=== PATIENT | female | born 1965 | race African-American/Black ===

== ENCOUNTER 2017-10-15 13:00 | Outpatient (RCR) | payer OTHER, SELFPAY | END 2017-10-30 23:59 | LOC: NS 13:00 | PROVIDERS: Family Provider Internal Medicine; PCP Internal Medicine; Visit Provider Nurse Practitioner Family | DX: E66.9 Obesity, unspecified (principal); Z71.3 Dietary counseling and surveillance | CPT/HCPCS: 97802; 97803 ==

== ENCOUNTER 2017-11-12 10:18 | Outpatient (RCR) | payer OTHER, SELFPAY | END 2017-11-27 23:59 | LOC: NS 10:18 | PROVIDERS: Family Provider Internal Medicine; PCP Internal Medicine; Visit Provider Nurse Practitioner Family | DX: E66.9 Obesity, unspecified (principal); Z71.3 Dietary counseling and surveillance | CPT/HCPCS: 97803 ==

== ENCOUNTER 2017-12-03 11:04 | Outpatient (RCR) | payer OTHER, SELFPAY | END 2017-12-28 23:59 | LOC: NS 11:04 | PROVIDERS: Family Provider Internal Medicine; PCP Internal Medicine; Visit Provider Nurse Practitioner Family | DX: E66.9 Obesity, unspecified (principal); Z71.3 Dietary counseling and surveillance | CPT/HCPCS: 97803 ==

== ENCOUNTER → 2018-06-20 07:14 | Outpatient (CLI) | payer OTHER, SELFPAY ==
[2018-06-20 08:05] LABS: ALB/GLOB Ratio 0.8 RATIO (0.9-2.4); AST(SGOT) 15 U/L (15-37); Alanine Aminotransfer ALT/SGPT 20 U/L (13-56); Albumin, Serum 3.6 g/dL (3.2-5.0); Alkaline Phosphatase 90 U/L (45-117); Anion Gap 9 (5-15); BUN 12 mg/dL (7-18); BUN/Creat Ratio 11.4 RATIO (10-20); Calcium,Total 8.7 mg/dL (8.5-10.1); Chloride 107 mmol/L (98-107); Cholesterol 225 mg/dL (200); Creatinine, Serum 1.05 mg/dL (0.55-1.02); EST Glomerular Filtration Rate 58 mL/min (>60); Est Glom Filt Rate - Afr Amer 70 mL/min (>60); Globulin 4.3 g/dL (2.2-4.2); Glucose 94 mg/dL (74-106); High Density Lipoprotein 56 mg/dL; Potassium 4.1 mmol/L (3.5-5.1); Protein, Total 7.9 g/dL (6.4-8.2); Sodium Level 140 mmol/L (136-145); T4 Free Direct 1.33 ng/dL (0.76-1.46); Thyroid Stim Hormone (TSH) 0.69 uIU/mL (0.358-3.74); Triglycerides 84 mg/dL; Very Low Density Lipoprotein 17 mg/dL (5-40)
[2018-06-25 08:50] LABS: Vitamin D 1,25-Dihydroxy 52.9 pg/mL (19.9-79.3)
== END ==
PROVIDERS: Family Provider Internal Medicine; PCP Internal Medicine; Visit Provider Nurse Practitioner
DX: E03.9 Hypothyroidism, unspecified (principal); E55.9 Vitamin D deficiency, unspecified; E78.5 Hyperlipidemia, unspecified
CPT/HCPCS: 36415; 80053; 80061; 82652; 84439; 84443

== ENCOUNTER → 2019-10-27 08:40 | Outpatient (CLI) | payer OTHER, SELFPAY ==
[2019-09-01 15:27] VITALS: BMI 34.8
[2019-10-27 09:51] LABS: T4 Free Direct 1.27 ng/dL (0.76-1.46); Thyroid Stim Hormone (TSH) 4.92 uIU/mL (0.358-3.74)
[2019-10-27 09:52] LABS: Vitamin B12 335 pg/mL (211-911)
== END ==
PROVIDERS: PCP Internal Medicine; Referring Provider Internal Medicine Endocrinology, Diabetes & Metabolism; Visit Provider Internal Medicine Endocrinology, Diabetes & Metabolism
DX: E89.0 Postprocedural hypothyroidism (principal); K90.9 Intestinal malabsorption, unspecified
CPT/HCPCS: 36415; 82607; 84439; 84443

== ENCOUNTER → 2021-03-14 16:24 | Outpatient (CLI) | payer OTHER, SELFPAY ==
[2019-09-01 15:27] VITALS: BMI 34.8
[2021-03-14 17:38] LABS: T4 Free Direct 1.63 ng/dL (0.76-1.46); Thyroid Stim Hormone (TSH) 0.09 uIU/mL (0.358-3.74)
== END ==
PROVIDERS: PCP Internal Medicine; Visit Provider Nurse Practitioner Family
DX: E89.0 Postprocedural hypothyroidism (principal)
CPT/HCPCS: 36415; 84439; 84443

== ENCOUNTER → 2021-05-29 11:50 | Outpatient (CLI) | payer OTHER, SELFPAY ==
[2021-05-29 15:59] LABS: T4 Free Direct 1.24 ng/dL (0.76-1.46); Thyroid Stim Hormone (TSH) 8.55 uIU/mL (0.358-3.74)
== END ==
PROVIDERS: PCP Internal Medicine; Visit Provider Internal Medicine Endocrinology, Diabetes & Metabolism
DX: E89.0 Postprocedural hypothyroidism (principal)
CPT/HCPCS: 36415; 84439; 84443

== ENCOUNTER 2021-11-20 09:36 | Outpatient (CLI) | payer OTHER, SELFPAY ==
[2021-11-20 12:35] LABS: T4 Free Direct 1.61 ng/dL (0.76-1.46); Thyroid Stim Hormone (TSH) 1.89 uIU/mL (0.358-3.74)
== END 2021-11-20 23:59 | disposition home or self-care (01) ==
PROVIDERS: PCP Internal Medicine; Visit Provider Internal Medicine Endocrinology, Diabetes & Metabolism
DX: E89.0 Postprocedural hypothyroidism (principal)
CPT/HCPCS: 36415; 84439; 84443

== ENCOUNTER → 2022-12-24 | Outpatient (CLI) | payer OTHER, SELFPAY ==
[2022-12-24 12:05] LABS: AST(SGOT) 17 U/L (15-37); Alanine Aminotransfer ALT/SGPT 17 U/L (13-56); Alkaline Phosphatase 78 U/L (45-117); Anion Gap 4 (5-15); BUN 11 mg/dL (7-18); BUN/Creat Ratio 10.9 RATIO (10-20); Calcium,Total 9.3 mg/dL (8.5-10.1); Chloride 107 mmol/L (98-107); Creatinine, Serum 1.01 mg/dL (0.55-1.02); EST Glomerular Filtration Rate 60 mL/min (>60); Est Glom Filt Rate - Afr Amer 72 mL/min (>60); Globulin 4.1 g/dL (2.2-4.2); Glucose 96 mg/dL (74-106); Potassium 3.7 mmol/L (3.5-5.1); Protein, Total 8.1 g/dL (6.4-8.2); Sodium Level 138 mmol/L (136-145); T4 Free Direct 1.53 ng/dL (0.76-1.46); Thyroid Stim Hormone (TSH) 0.84 uIU/mL (0.358-3.74)
== END | disposition home or self-care (01) ==
LOC: LAB 10:39
PROVIDERS: PCP Internal Medicine; Referring Provider Internal Medicine Endocrinology, Diabetes & Metabolism; Visit Provider Internal Medicine Endocrinology, Diabetes & Metabolism
DX: E03.9 Hypothyroidism, unspecified (principal); I10 Essential (primary) hypertension
CPT/HCPCS: 36415; 80053; 84439; 84443

== ENCOUNTER → 2023-07-15 | Outpatient (CLI) | payer OTHER, SELFPAY ==
--- NOTE | 2023-07-15 09:43 | BI_ITS ---
MAMMOGRAPHY - BILATERAL SCREENING 3-D TOMOSYNTHESIS REASON FOR EXAM: Female, 57 years old. screening PERTINENT HISTORY: No significant family history. TECHNIQUE: 2-D mammograms and 3-D Tomosynthesis of the breast (s) were performed. CAD was performed. COMPARISON: 03/19/2014 FINDINGS: The breast composition is composed of scattered fibroglandular density. Scattered benign calcifications are seen. No dense spiculated masses or suspicious microcalcifications are identified. No architectural distortion is identified. There is no skin thickening or retraction. There has been no significant change since the prior study. BI/SCRN MAMM (CAD)W/DEBORAH BILAT IMPRESSION: No mammographic signs of malignancy. Routine yearly mammograms recommended. ASSESSMENT CATEGORY: BIRADS Category 1: Negative. A letter regarding these results will be sent to the patient by the facility within 30 days. FOLLOW UP RECOMMENDATION: Yearly follow up mammogram recommended. (A) Approximately 10% of breast cancers are not detected by mammography. A normal mammogram should not delay biopsy of a clinically suspicious abnormality. Electronically Signed: Geraldo Stock MD at 11:23 EDT ,
== END | disposition home or self-care (01) ==
LOC: OPBI 09:43
PROVIDERS: PCP Internal Medicine; Referring Provider Internal Medicine Endocrinology, Diabetes & Metabolism; Visit Provider Internal Medicine Endocrinology, Diabetes & Metabolism
DX: Z12.31 Encounter for screening mammogram for malignant neoplasm of breast (principal)
CPT/HCPCS: 77063; 77067

== ENCOUNTER → 2024-01-22 | Outpatient (CLI) | payer OTHER, SELFPAY ==
[2024-01-22 14:27] LABS: Absolute Lymphocyte Count 1.42 X10^3/uL (0.83-4.51); Absolute Neutrophil Count 1.5 X10^3/uL (2.0-7.7); Basophil# 0.01 X10^3/uL; Basophil% 0.3 % (0-1); Eosinophil# 0.04 X10^3/uL; Eosinophils% 1.2 % (0-5); Hematocrit 38.8 % (37-47); Hemoglobin 12.6 g/dL (12.0-15.0); Lymphocyte # 1.42 X10^3/ul (0.83-4.51); Lymphocyte % 43.6 % (19-41); Mean Corp Hgb Conc 32.5 g/dL (32-36); Mean Corpuscular Hgb 28.9 pg (27.0-32.0); Mean Platelet Vol. 10.9 fl (6.2-12.0); Monocyte% 9.2 % (0-10); NRBC Flagged by Analyzer 0 % (0-5); Neutrophil # 1.49 X10^3/uL (2.7-7.7); Neutrophil % 45.7 % (47-70); Platelet Count 243 K/mm3 (150-450); RBC Distribution Width CV 11.8 % (11.6-14.6); RBC Distribution Width SD 37.7 fl (35.1-43.9); Red Blood Count 4.36 M/mm3 (4.2-5.4); White Blood Count 3.3 K/mm3 (4.4-11.0)
[2024-01-22 15:12] LABS: AST(SGOT) 14 U/L (15-37); Alanine Aminotransfer ALT/SGPT 15 U/L (13-56); Albumin, Serum 4.1 g/dL (3.2-5.0); Alkaline Phosphatase 78 U/L (45-117); Anion Gap 4 (5-15); BUN 14 mg/dL (7-18); BUN/Creat Ratio 15.2 RATIO (10-20); Calcium,Total 9.4 mg/dL (8.5-10.1); Chloride 107 mmol/L (98-107); Cholesterol 211 mg/dL (200); Creatinine, Serum 0.92 mg/dL (0.55-1.02); EST Glomerular Filtration Rate 66 mL/min (>60); Est Glom Filt Rate - Afr Amer 80 mL/min (>60); Glucose 90 mg/dL (74-106); High Density Lipoprotein 53 mg/dL; Potassium 3.9 mmol/L (3.5-5.1); Protein, Total 8.1 g/dL (6.4-8.2); Sodium Level 139 mmol/L (136-145); T4 Free Direct 1.61 ng/dL (0.76-1.46); Triglycerides 78 mg/dL; Very Low Density Lipoprotein 16 mg/dL (5-40)
== END | disposition home or self-care (01) ==
LOC: LAB 13:19
PROVIDERS: PCP Internal Medicine; Referring Provider Internal Medicine Endocrinology, Diabetes & Metabolism; Visit Provider Internal Medicine Endocrinology, Diabetes & Metabolism
DX: E03.9 Hypothyroidism, unspecified (principal)
CPT/HCPCS: 36415; 80053; 80061; 84439; 84443; 85025

== ENCOUNTER → 2025-03-03 | Outpatient (CLI) | payer OTHER, SELFPAY ==
--- OUTSIDE RECORDS SUMMARY | 2025-03-03 11:17 | XMS RPT_ITS | CCD ---
Author Organization [facility] Inform ion Partnership [facility] Care Team Providers Care Lobster Man Name Role Phone Cynthia Carreno MD Unavailable [phone] Hillary Terry Unavailable Unavailable Randy RATE SETTER-C, Rafaela Piper Unavailable Unavailable MIHIR MONTALVO (CHEF DE FROID) Unavailable Unavailabl Cynthia Rodriguez MD Unavailable [phone] Dr. Cynthia Carreno Primary Care Provider [phone] Dr. Cynthia Carreno Referring Provider [phone] Dr. Sundar Briggs Attending Provider Wai Efewongbe Referring Unavailable Sundar Briggs Attending Unavailable Wai Efewbrittany Primary Care Unavailable Sundar Briggs Attending Unavailable Sundar Briggs Referring Unavailable Wai Efteto Primary Care Unavailable Sundar Briggs Attending Unavailable Sundar Briggs Referring Unavailable Wai Efewongclifton Primary Care Unavailable Oleeduardoe Efewongbe Referring Unavailable Sundar Briggs Attending Unavailable Wai Efewongclifton Primary Care Unavailable Allergies Allergy Classification Reported Allergen(s) Allergy Type Date of Onset Reaction(s) Facility (8 sources) codeine; Translations: [CODEINE] drug allergy 7 [facility], Unknown [facility] Work Phone: (4 sources) IRON DEXTROS drug allergy 0 [facility] Work Phone: (1 source) IRON DEXTRAN; Translations: [IRON DEXTRAN] Propensity to adverse reactions to drug (disorder) 7 [facility] Repository (2 sources) Glucose Drug Allergy 3 Unknown [facility] (2 sources) Iron Drug Allergy 3 Unknown [facility] (1 source) Glucose Drug Allergy 4 [facility] Repository (1 source) Iron Drug Allergy 4 [facility] Repository Medications Current Medications Medication Drug Class(es) Dates Sig (Normalized) Sig (Original) levothyroxine sodium 0.137 mg oral tablet (20 sources) l-Thyroxine Start: 01-22-2024 take 137 ug by mouth once daily Levothyroxine Active 137 MCG PO DAILY January 22, 2024 12:00am Start: 03-15-2021 End: 01-22-2024 take 1 tablet by mouth once daily Levothyroxine (Synthroid) 150 mcg tablet Discontinued 150 MCG PO DAILY December 24, 2022 3:34pm June 10, 2023 4:11pm please discontinue any other thyroid prescription. Start: 06-04-2018 End: 03-15-2021 take 1 tablet by mouth once daily Levothyroxine (Synthroid) 200 mcg tablet Discontinued 200 MCG PO DAILY October 29, 2019 1:00am March 15, 2021 8:46am Start: 04-07-2012 take 1 tablet by rl th once daily SYNTHROID 200 MCG TABS One tablet by mouth daily LEVOTHYROXINE SODIUM [id number] Rafaela Padilla RATE SETTER-C Start: 04-07-2012 take 1 tablet by rl th once daily SYNTHROID 175 MCG TABS One tablet by mouth daily LEVOTHYROXINE SODIUM [id number] Cynthia Carreno MD Start: 04-07-2012 take 1 tablet by rl th once daily SYNTHROID 175 MCG TABS One tablet by mouth daily LEVOTHYROXINE SODIUM [id number] Ilir Li MD take 1 tablet by rl th once daily SYNTHROID 175 MCG TABS po daily LEVOTHYROXINE SODIUM [id number] Anne Ca Completed/Discontinued Medications Medication Drug Class(es) Dates Sig (Normalized) Sig (Original) amoxicillin 500 mg oral tablet (8 sources) Penicillin-class Antibacterial Start: 06-19-2012 End: 08-04-2012 take 1 tablet by mouth three times daily AMOXICILLIN 500 MG TABS One tablet by mouth three times daily AMOXICILLIN [id number] Ilir Li MD cephalexin 500 mg oral tablet (16 sources) Cephalosporin Antibacterial Start: 06-18-2012 End: 07-21-2012 take 1 tablet by mouth three times daily CEPHALEXIN 500 MG TABS One tablet by mouth three times daily CEPHALEXIN [id number] Ilir Li MD cyclobenzaprine hydrochloride 5 mg oral tablet (16 sources) Muscle Relaxant Start: 12-25-2013 End: 04-26-2017 take 1-2 tablets by mouth twice daily as needed CYCLOBENZAPRINE HCL 5 MG TABS 1-2 tablets by mouth twice daily as needed, avoid driving or operating machine under the influence of medication. CYCLOBENZAPRINE HCL [id number] Ilir Li MD Start: 04-07-2012 End: 06-18-2012 take 1 tablet by mouth three times daily as needed for pain CYCLOBENZAPRINE HCL 5 MG TABS One tablet by mouth three times daily as needed back pain, avoid driving or operating machine under the influence of medication. CYCLOBENZAPRINE HCL [id number] Ilir Li MD doxycycline hyclate 100 mg oral tablet (12 sources) Tetracycline-class Drug Start: 08-04-2012 End: 12-31-2012 take 1 tablet by mouth twice daily DOXYCYCLINE HYCLATE 100 MG TABS One tablet by mouth twice daily DOXYCYCLINE HYCLATE [id number] Fabiana Wagner MD Start: 07-11-2012 End: 07-21-2012 take 1 tablet by mouth twice daily DOXYCYCLINE HYCLATE 100 MG TABS One tablet by mouth twice daily DOXYCYCLINE HYCLATE [id number] Ilir Li MD mupirocin 0.02 mg/mg topical ointment (8 sources) RNA Synthetase Inhibitor Antibacterial Start: 07-11-2012 End: 04-26-2017 MUPIROCIN 2 % OINT apply to fingertips and bilateral nostril four times a day MUPIROCIN [id number] Hillary Terry SULFAMETHOXAZOLE- TRIMETHOPRIM TABS (8 sources) Dihydrofolate Reductase Inhibitor Antibacterial, Sulfonamide Antimicrobial take 1 tablet by mouth twice daily SULFAMETHOXAZOLE-T RIMETHOPRIM TABS One tablet by mouth twice daily SULFAMETHOXAZOLE-T RIMETHOPRIM TABS [id number] Fabiana Wagner MD End: 04-26-2017 take 1 tablet by mouth twice daily SULFAMETHOXAZOLE-TRIMETHOPRIM TABS One t ablet by mouth twice daily SULFAMETHOXAZOLE-TRIMETHOPRIM TABS [id number] Hillary Terry take 1 tablet by rl twice daily SULFAMETHOXAZOLE-TRIMETHOPRIM TABS One t ablet by mouth twice daily SULFAMETHOXAZOLE-TRIMETHOPRIM TABS [id number] Fabiana Wagner MD End: 04-26-2017 take 1 tablet by mouth twice daily SULFAMETHOXAZOLE-TRIMETHOPRIM TABS One t ablet by mouth twice daily SULFAMETHOXAZOLE-TRIMETHOPRIM TABS [id number] Hillary Terry Problems Active Problems Problem Classification Problem Date Documented Date Episodic/Chronic Complications of surgical procedures or medical care (1 source) Postprocedural hypothyroidism; Translations: [Postprocedural hypothyroidism] Onset: 06-02-2024 Chronic Disorders of lipid metabolism (1 source) Mixed hyperlipidemia; Translations: [Mixed hyperlipidemia] Onset: 06-02-2024 Chronic Essential hypertension (3 sources) Essential hypertension; Translations: [Essential (primary) hypertension] Onset: 06-02-2024 06-08-2018 Chronic Nutritional deficiencies (4 sources) Vitamin D deficiency; Translations: [Vitamin D deficiency, unspecified] Onset: 04-26-2017 04-26-2017 Chronic Other nutritional; endocrine; and metabolic disorders (4 sources) Body mass index (BMI) 32.0-32.9, adult; Translations: [Body mass index (BMI) 32.0-32.9, adult] Onset: 04-26-2017 04-26-2017 Chronic Thyroid disorders (8 sources) Hypothyroidism; Translations: [Hypothyroidism, unspecified] Onset: 11-22-2009 11-22-2009 Chronic Unclassified (3 sources) Hyperlipidemia screening ; Translations: [Encounter for screening for other disorder] Onset: 04-26-2017 04-26-2017 Unclassified (3 sources) General examination of patient ; Translations: [Encounter for other general examination] Onset: 04-07-2012 04-07-2012 Unclassified (3 sources) Screening for malignant neoplasm of breast ; Translations: [Encounter for other screening for malignant neoplasm of breast] Onset: 04-26-2017 04-26-2017 Unclassified (2 sources) Preventive procedure; Translations: [Encounter for general adult medical examination without abnormal findings] Onset: 04-26-2017 04-26-2017 Unclassified (1 source) Procedure carried out on subject; Translations: [Encounter for screening for diseases of the blood and blood-forming organs and certain disorders involving the immune mechanism] Onset: 04-26-2017 04-26-2017 Past or Other Problems Problem Classification Problem Date Documented Date Episodic/Chronic Coagulation and hemorrhagic disorders (4 sources) Vascular hemostatic disease; Translations: [Other nonthrombocytopenic purpura] Onset: 3 12-31-2012 Episodic Medical examination/evaluati on (2 sources) Encounter for general adult medical examination without abnormal findings; Translations: [Encounter for general adult medical examination without abnormal findings] Onset: 7 04-26-2017 Episodic Other circulatory disease (4 sources) Elevated blood-pressure reading without diagnosis of hypertension; Translations: [Elevated blood-pressure reading, without diagnosis of hypertension] Onset: 2 04-07-2012 Episodic Other upper respiratory infections (4 sources) Acute pharyngitis; Translations: [Acute pharyngitis, unspecified] Onset: 2 06-18-2012 Episodic Spondylosis; intervertebral disc disorders; other back problems (4 sources) Backache; Translations: [Dorsalgia, unspecified] Onset: 2 04-07-2012 Episodic Sprains and strains (4 sources) Low back strain; Translations: [Strain of muscle, fascia and tendon of lower back] Onset: 4 12-25-2013 Episodic Unclassified (8 sources) Encounter for screening for diabetes mellitus; Translations: [Encounter for screening for diseases of the blood and blood-forming organs and certain disorders involving the immune mechanism] Onset: 7 04-26-2017 Episodic Results Test Name Value Interpretation Reference Range Facility Endocrinology Visit Reporton 06-02-2024 Endocrinology Visit Report [facility] [address] [place] [address]. [address] [place] [address] OFFICE VISIT Date of Service: 06/02/24 MR#: [id number] Acct: [id number] Name: LUANN RIBEIRO I Rep #: [id number] : 1965 Provider: Alona Briggs Age/Sex: 58/F [place] [facility] [place]: Signed Intake Vital Signs 06/10/23 15:58 06/02/24 15:52 Height 5 ft 5.5 in 5 ft 5.5 in Weight: 211 lb 209 lb BMI 34.5 34.2 BP 142/82 H 128/85 H Blood Pressure Location Lt brachial Lt brachial Position Sitting Sitting Respiration 16 Pulse 72 78 Pulse Source Monitor Monitor Temp 98.3 F Temp Source Temporal Pulse Oximetry (%) 98 99 Oxygen Delivery Method room air room air Intake Visit Reasons: 1 Y FU Chief Complaint: Hypothyroidism Employee'S Representative Required: No Accompanied by: Self Is patient in pain?: No Allergies codeine Allergy (Unknown, Verified 06/02/24 15:54) Unknown dextrose Allergy (Unknown, Verified 06/02/24 15:54) Unknown iron Allergy (Unknown, Verified 06/02/24 15:54) Unknown Medications ???Medication ???Instructions ???Recorded ???Confirmed ???Type levothyroxine 137 mcg tablet 137 mcg PO DAILY #90 tabs 06/02/24 06/02/24 Rx PFSH Medical History Mixed hyperlipidemia Thyroid dysfunction Surgical History H/O: hysterectomy H/O: Family History Unknown Diabetes Hypertension Social History Smoking Status: Never smoker HPI HPI Chief Complaint: Hypothyroidism Details: LUANN RIBEIRO, is a 58 F who presents to the office today for follow up. She has hypothyroidism. She is taking levothyroxine 137 mcg daily. We reduced her to this dose in the spring. Her LDL was 142 and she wanted to work on her diet. ROS Const Constitutional: No anorexia, excessive sweating, malaise, night sweats, weight change or change in appetite Eyes Eyes: No change in vision ENT ENT: No hearing loss, nasal congestion or difficulty swallowing Cardio Cardiology: No chest pain at rest, excessive sweating, shortness of breath, dyspnea on exertion, irregular heart rhythm or palpitations Musc Musculoskeletal: No abnormal gait, joint pain, numbness or tingling Neuro Neurology: No abnormal gait, memory loss, numbness or tingling Psych Psychiatric: No change in appetite, No memory loss and No Thoughts of harming yourself/Others Resp Respiratory: No cough, chest congestion or shortness of breath Gastro GI: No abdominal pain, constipation, diarrhea or difficulty swallowing Genitourinary-Female: No burning urination Skin Skin: No hair loss in leg, itchy eyes, rash or skin ulcer Endo Endocrine: No excessive sweating or weight change Aller/Imm Allergy/Immunologic: No itchy eyes Assessment and Plan Assessment and Plan (1) Hypothyroid: Status: Chronic Qualifiers: Hypothyroidism type: postablative Qualified Code(s): E89.0 - Postprocedural hypothyroidism Plan: Take levothyroxine on an empty stomach with water at least four hours after eating. Then wait 30-60 minutes before consuming any other food or beverage, especially coffee. Separate levothyroxine from vitamins by at least 4 hours. Stop taking any biotin supplement 4 days prior to having labs drawn. Recheck levels on new dose. (2) Mixed hyperlipidemia: Status: Acute Plan: Recheck levels after dietary changes. I have spent [25] minutes today reviewing labs, records and history. Time includes coordinating care, interpretation of tests, discussion with patient's other health care providers via telephone. This also includes time I spent with the patient for exam, treatment plan and education as well as documenting clinical information. Orders: Orders Lipid Profile Today E78.2 - Mixed hyperlipidemia, E89.0 - Postprocedural hypothyroidism, I10 - Essential (primary) hypertension Thyroid Stim Hormone (TSH) Today E78.2 - Mixed hyperlipidemia, E89.0 - Postprocedural hypothyroidism, I10 - Essential (primary) hypertension T4 Free Direct Today E78.2 - Mixed hyperlipidemia, E89.0 - Postprocedural hypothyroidism, I10 - Essential (primary) hypertension Medications: Refilled levothyroxine 137 mcg PO DAILY 90 tabs 1RF Coding Level of Care Code Off vis,est,level 3 Diagnoses Postablative hypothyroidism E89.0 Hypothyroidism type: postablative Mixed hyperlipidemia E78.2 06/02/24 1635 Date Sundar Briggs MD Cosigner Signature: Date (if applicable) CC: Normal [facility] Absolute lymphocyte countOrd ered By: Sundar Briggs on 01-22-2024 Lymphocytes Auto (Unsp spec) [#/Vol] 1.42 10*3/uL 0.83-4.51 [facility] Automated lymphocyte count a s percentage of total leukocytesOrdered By: Sundar Briggs on 01-22-2024 Lymphocytes/100 WBC Auto (Unsp spec) 43.6 % 19-41 [facility] Basophil percentageOrdered B y: Sundar Briggs on 01-22-2024 Basophils/100 WBC (Bld) 0.3 % 0-1 [facility] Bilirubin [Mass/Vol] 0.50 mg/dL 0.20-1.00 [facility] Comment on above: For patients on eltr ombopag therapy, use of Dimension [place] TBIL is not recommended. Chloride [Moles/Vol] 107 mmol/L 98-107 [facility] Cholesterol [Mass/Vol] 211 mg/dL <200 [facility] Comment on above: <200 mg/dL Desirable 200-240 mg/dL Borderline >240 mg/dL High Risk Eosinophils/100 WBC (Bld) 1.2 % 0-5 [facility] Glucose [Mass/Vol] 90 mg/dL 74-106 [facility] Hemoglobin (Bld) [Mass/Vol] 12.6 g/dL 12.0-15.0 [facility] Monocytes/100 WBC (Bld) 9.2 % 0-10 [facility] Neutrophils (Bld) [#/Vol] 1.5 10*3/uL 2.0-7.7 [facility] Neutrophils/100 WBC (Bld) 45.7 % 47-70 [facility] Potassium [Moles/Vol] 3.9 mmol/L 3.5-5.1 [facility] Protein [Mass/Vol] 8.1 g/dL 6.4-8.2 [facility] Sodium [Moles/Vol] 139 mmol/L 136-145 [facility] Triglyceride [Mass/Vol] 78 mg/dL <199 [facility] Comment on above: The drugs N-Acetylcy steine and Metamizole may falsely depress this assay.Serum Triglycerides Reference Interval Normal <150 mg/dL Borderline high 150 - 199 mg/dL High 200 - 499 mg/dL Very High > or = 500 mg/dL WBC (Bld) [#/Vol] 3.3 10*3/uL 4.4-11.0 [facility] CBC W/Diff, Automatedon 12-30 Absolute Lymph 1.42 X10 3/uL Normal 0.83-4.51 [facility] Comment on above: Performed By: #### L 500.4050, L501.9520, L506.0400, L500.4100, L100.0100 #### [facility] [address] [place], [address] Absolute Neut 1.5 X10 3/uL Low 2.0-7.7 [facility] Comment on above: Performed By: #### L 500.4050, L501.9520, L506.0400, L500.4100, L100.0100 #### [facility] [address] [place], [address] Basophils/100 WBC (Bld) 0.3 % Normal 0-1 [facility] Comment on above: Performed By: #### L 500.4050, L501.9520, L506.0400, L500.4100, L100.0100 #### [facility] [address] [place], [address] Eosinophils/100 WBC (Bld) 1.2 % Normal 0-5 [facility] Comment on above: Performed By: #### L 500.4050, L501.9520, L506.0400, L500.4100, L100.0100 #### [facility] [address] [place], [address] Erythrocyte distribution width (RBC) [Ratio] 11.8 % Normal 11.6-14.6 [facility] Comment on above: Performed By: #### L 500.4050, L501.9520, L506.0400, L500.4100, L100.0100 #### [facility] [address] [place], [address] Hematocrit (Bld) [Volume fraction] 38.8 % Normal 37-47 [facility] Comment on above: Performed By: #### L 500.4050, L501.9520, L506.0400, L500.4100, L100.0100 #### [facility] [address] [place], [address] Hemoglobin (Bld) [Mass/Vol] 12.6 g/dL Normal 12.0-15.0 [facility] Comment on above: Performed By: #### L 500.4050, L501.9520, L506.0400, L500.4100, L100.0100 #### [facility] [address] [place], [address] IG% 0.000 Normal 0.0-0.9 [facility] Comment on above: Result Comment: IG% - Immature Granulocytes (promyelocytes, myelocytes and metamyelocytes) > 1% indicates that a LEFT SHIFT is Present. Performed By: #### L 500.4050, L501.9520, L506.0400, L500.4100, L100.0100 #### [facility] [address] [place], [address] Lymphocytes/100 WBC (Bld) 43.6 % High 19-41 [facility] Comment on above: Performed By: #### L 500.4050, L501.9520, L506.0400, L500.4100, L100.0100 #### [facility] [address] [place], [address] MCH (RBC) [Entitic mass] 28.9 pg Normal 27.0-32.0 [facility] Comment on above: Performed By: #### L 500.4050, L501.9520, L506.0400, L500.4100, L100.0100 #### [facility] [address] [place], [address] MCHC (RBC) [Mass/Vol] 32.5 g/dL Normal 32-36 [facility] Comment on above: Performed By: #### L 500.4050, L501.9520, L506.0400, L500.4100, L100.0100 #### [facility] [address] [place], [address] MCV (RBC) [Entitic vol] 89.0 fL Normal 81-99 [facility] Comment on above: Performed By: #### L 500.4050, L501.9520, L506.0400, L500.4100, L100.0100 #### [facility] [address] [place], [address] Monocytes/100 WBC (Bld) 9.2 % Normal 0-10 [facility] Comment on above: Performed By: #### L 500.4050, L501.9520, L506.0400, L500.4100, L100.0100 #### [facility] [address] [place], [address] Neutrophils/100 WBC (Bld) 45.7 % Low 47-70 [facility] Comment on above: Performed By: #### L 500.4050, L501.9520, L506.0400, L500.4100, L100.0100 #### [facility] [address] [place], [address] Nucleated RBC (Bld) [#/Vol] 0 10*3/uL Normal 0-5 [facility] Comment on above: Performed By: #### L 500.4050, L501.9520, L506.0400, L500.4100, L100.0100 #### [facility] [address] [place], [address] Platelet mean volume (Bld) [Entitic vol] 10.9 fL Normal 6.2-12.0 [facility] Comment on above: Performed By: #### L 500.4050, L501.9520, L506.0400, L500.4100, L100.0100 #### [facility] [address] [place], [address] Platelets (Bld) [#/Vol] 243 10*3/uL Normal 150-450 [facility] Comment on above: Performed By: #### L 500.4050, L501.9520, L506.0400, L500.4100, L100.0100 #### [facility] [address] [place], [address] RBC (Bld) [#/Vol] 4.36 10*6/uL Normal 4.2-5.4 [facility] Comment on above: Performed By: #### L 500.4050, L501.9520, L506.0400, L500.4100, L100.0100 #### [facility] [address] [place], [address] RDW SD 37.7 fl Normal 35.1-43.9 [facility] Comment on above: Performed By: #### L 500.4050, L501.9520, L506.0400, L500.4100, L100.0100 #### [facility] [address] [place], [address] WBC (Bld) [#/Vol] 3.3 10*3/uL Low 4.4-11.0 [facility] Comment on above: Performed By: #### L 500.4050, L501.9520, L506.0400, L500.4100, L100.0100 #### [facility] [address] [place], [address] Comprehensive Metabolic Prof ilon 01-22-2024 Albumin [Mass/Vol] 4.1 g/dL Normal 3.2-5.0 [facility] Comment on above: Performed By: #### L 500.4050, L501.9520, L506.0400, L500.4100, L100.0100 #### [facility] [address] [place], [address] Albumin/Globulin [Mass ratio] 1.0 {ratio} Normal 0.9-2.4 [facility] Comment on above: Performed By: #### L 500.4050, L501.9520, L506.0400, L500.4100, L100.0100 #### [facility] [address] [place], [address] ALK P 78 U/L Normal 45-117 [facility] Comment on above: Performed By: #### L 500.4050, L501.9520, L506.0400, L500.4100, L100.0100 #### [facility] [address] [place], [address] ALT [Catalytic activity/Vol] 15 U/L Normal 13-56 [facility] Comment on above: Performed By: #### L 500.4050, L501.9520, L506.0400, L500.4100, L100.0100 #### [facility] [address] [place], [address] AST [Catalytic activity/Vol] 14 U/L Low 15-37 [facility] Comment on above: Performed By: #### L 500.4050, L501.9520, L506.0400, L500.4100, L100.0100 #### [facility] [address] [place], [address] Bilirubin [Mass/Vol] 0.50 mg/dL Normal 0.20-1.00 [facility] Comment on above: Result Comment: For patients on eltrombopag therapy, use of Dimension [place] TBIL is not recommended. Performed By: #### L 500.4050, L501.9520, L506.0400, L500.4100, L100.0100 #### [facility] [address] [place], [address] BUN/CRE 15.2 RATIO Normal 10-20 [facility] Comment on above: Performed By: #### L 500.4050, L501.9520, L506.0400, L500.4100, L100.0100 #### [facility] [address] [place], [address] CA,Total 9.4 mg/dL Normal 8.5-10.1 [facility] Comment on above: Performed By: #### L 500.4050, L501.9520, L506.0400, L500.4100, L100.0100 #### [facility] [address] [place], [address] Chloride [Moles/Vol] 107 mmol/L Normal 98-107 [facility] Comment on above: Performed By: #### L 500.4050, L501.9520, L506.0400, L500.4100, L100.0100 #### [facility] [address] [place], [address] CO2 [Moles/Vol] 28.0 mmol/L Normal 21.0-32.0 [facility] Comment on above: Performed By: #### L 500.4050, L501.9520, L506.0400, L500.4100, L100.0100 #### [facility] [address] [place], [address] Creatinine [Mass/Vol] 0.92 mg/dL Normal 0.55-1.02 [facility] Comment on above: Result Comment: The validity of the calculated GFR GFRAA in patients over 70 years has not been determined. Clinical correlation is essential. Performed By: #### L 500.4050, L501.9520, L506.0400, L500.4100, L100.0100 #### [facility] [address] [place], [address] EST GFR - AA 80 mL/min Normal >60 [facility] Comment on above: Result Comment: Afri can Finnish GFR Calc Performed By: #### L 500.4050, L501.9520, L506.0400, L500.4100, L100.0100 #### [facility] [address] [place], [address] GAP 4 Low 5-15 [facility] Comment on above: Performed By: #### L 500.4050, L501.9520, L506.0400, L500.4100, L100.0100 #### [facility] [address] [place], [address] GFR/1.73 sq M.predicted among non-blacks MDRD (S/P/Bld) [Vol rate/Area] 66 mL/min/{1.73_m2} Normal >60 [facility] Comment on above: Result Comment: Non- GFR Calc Performed By: #### L 500.4050, L501.9520, L506.0400, L500.4100, L100.0100 #### [facility] [address] [place], [address] Globulin (S) [Mass/Vol] 4.0 g/dL Normal 2.2-4.2 [facility] Comment on above: Performed By: #### L 500.4050, L501.9520, L506.0400, L500.4100, L100.0100 #### [facility] [address] [place], [address] Glucose [Mass/Vol] 90 mg/dL Normal 74-106 [facility] Comment on above: Performed By: #### L 500.4050, L501.9520, L506.0400, L500.4100, L100.0100 #### [facility] [address] [place], [address] Potassium [Moles/Vol] 3.9 mmol/L Normal 3.5-5.1 [facility] Comment on above: Performed By: #### L 500.4050, L501.9520, L506.0400, L500.4100, L100.0100 #### [facility] [address] [place], [address] Sodium [Moles/Vol] 139 mmol/L Normal 136-145 [facility] Comment on above: Performed By: #### L 500.4050, L501.9520, L506.0400, L500.4100, L100.0100 #### [facility] [address] [place], [address] T PROT 8.1 g/dL Normal 6.4-8.2 [facility] Comment on above: Performed By: #### L 500.4050, L501.9520, L506.0400, L500.4100, L100.0100 #### [facility] [address] [place], [address] Urea nitrogen [Mass/Vol] 14 mg/dL Normal 7-18 [facility] Comment on above: Performed By: #### L 500.4050, L501.9520, L506.0400, L500.4100, L100.0100 #### [facility] [place], [address] Determination of erythrocyte mean corpuscular volume (MCV)Ordered By: Sundar Briggs on 01-22-2024 MCV (RBC) [Entitic vol] 89.0 fL 81-99 [facility] Erythrocyte distribution wid th ratioOrdered By: Sundar Briggs on 01-22-2024 Erythrocyte distribution width (RBC) [Ratio] 11.8 % 11.6-14.6 [facility] Erythrocyte distribution wid th standard deviationOrdered By: Sundar Briggs on 01-22-2024 Erythrocyte distribution width (RBC) [Entitic vol] 37.7 fL 35.1-43.9 [facility] Hematocrit Auto (Bld) [Volum e fraction]Ordered By: Sundar Briggs on 01-22-2024 Hematocrit (Bld) [Volume fraction] 38.8 % 37-47 [facility] Immature granulocytes/100 WB C Auto (Bld)Ordered By: Sundar Briggs on 01-22-2024 Immature granulocytes/100 WBC (Bld) 0.000 % 0.0-0.9 [facility] Comment on above: IG% - Immature Granu locytes (promyelocytes, myelocytes and metamyelocytes) > 1% indicates that a LEFT SHIFT is Present. Laboratory - Chemistry and C hemistry - challengeOrdered By: Sundar Briggs on 01-22-2024 Albumin/Globulin [Mass ratio] 1.0 {ratio} 0.9-2.4 [facility] ALP [Catalytic activity/Vol] 78 U/L 45-117 [facility] ALT [Catalytic activity/Vol] 15 U/L 13-56 [facility] Cholesterol in HDL [Mass/Vol] 53 mg/dL >40 [facility] Comment on above: The drugs N-Acetylcy steine and Metamizole may falsely depress this assay. Reference Range HDL <40 mg/dL Low HDL Cholesterol HDL >or= 60 mg/dL High HDL Cholesterol Cholesterol in LDL [Mass/Vol] 142 mg/dL 0-130 [facility] CO2 [Moles/Vol] 28.0 mmol/L 21.0-32.0 [facility] Globulin (S) [Mass/Vol] 4.0 g/dL 2.2-4.2 [facility] Urea nitrogen/Creatinine [Mass ratio] 15.2 mg/mg 10-20 [facility] - Hematology and Cell countsOrdered By: Sundar Briggs on 01-22-2024 MCH (RBC) [Entitic mass] 28.9 pg 27.0-32.0 [facility] MCHC (RBC) [Mass/Vol] 32.5 g/dL 32-36 [facility] Nucleated RBC/100 WBC (Bld) [Ratio] 0 % 0-5 [facility] Platelet mean volume (Bld) [Entitic vol] 10.9 fL 6.2-12.0 [facility] Platelets (Bld) [#/Vol] 243 10*3/uL 150-450 [facility] Lipid Profileon 01-22-2024 Cholesterol [Mass/Vol] 211 mg/dL High 200 [facility] Comment on above: Result Comment: <200 mg/dL Desirable 200-240 mg/dL Borderline >240 mg/dL High Risk Performed By: #### L 500.4050, L501.9520, L506.0400, L500.4100, L100.0100 #### [facility] [address] [place], [address] Cholesterol in HDL [Mass/Vol] 53 mg/dL Normal [facility] Comment on above: Result Comment: The drugs N-Acetylcysteine and Metamizole may falsely depress this assay. Reference Range HDL <40 mg/dL Low HDL Cholesterol HDL >or= 60 mg/dL High HDL Cholesterol Performed By: #### L 500.4050, L501.9520, L506.0400, L500.4100, L100.0100 #### [facility] [address] [place], [address] Cholesterol in LDL [Mass/Vol] 142 mg/dL High 0-130 [facility] Comment on above: Performed By: #### L 500.4050, L501.9520, L506.0400, L500.4100, L100.0100 #### [facility] [address] [place], [address] Cholesterol in VLDL [Mass/Vol] 16 mg/dL Normal 5-40 [facility] Comment on above: Performed By: #### L 500.4050, L501.9520, L506.0400, L500.4100, L100.0100 #### [facility] [address] [place], [address] Triglyceride [Mass/Vol] 78 mg/dL Normal [facility] Comment on above: Result Comment: The drugs N-Acetylcysteine and Metamizole may falsely depress this assay. Serum Triglycerides Reference Interval Normal <150 mg/dL Borderline high 150 - 199 mg/dL High 200 - 499 mg/dL Very High > or = 500 mg/dL Performed By: #### L 500.4050, L501.9520, L506.0400, L500.4100, L100.0100 #### [facility] [address] [place], [place], [id number] No Panel InformationOrdered By: Sundar Briggs on 01-22-2024 Estimated GFR (MDRD) Amer 80 mL/min >60 [facility] Comment on above: GFR Calc Estimated GFR (MDRD) Non-Af Amer 66 mL/min >60 [facility] Comment on above: Non- GFR Calc VLDL Cholesterol 16 mg/dL 5-40 [facility] RBC Auto (Bld) [#/Vol]Ordere d By: Sundar Briggs on 01-22-2024 RBC (Bld) [#/Vol] 4.36 10*6/uL 4.2-5.4 [facility] Serum or plasma calcium yoan urement (mass/volume)Ordered By: Sundar Briggs on 01-22-2024 Calcium [Mass/Vol] 9.4 mg/dL 8.5-10.1 [facility] Serum or plasma creatinine m easurement (mass/volume)Ordered By: Sundar Briggs on 01-22-2024 Creatinine [Mass/Vol] 0.92 mg/dL 0.55-1.02 [facility] Comment on above: The validity of the calculated GFR & GFRAA in patients over 70 years has not been determined. Clinical correlation is essential. Serum or plasma thyroid stim ulating hormone (TSH) measurement (units/volume)Ordered By: Sundar Briggs on 01-22-2024 TSH Qn 0.10 uIU/mL 0.358-3.74 [facility] Serum or plasma urea nitroge n measurement (mass/volume)Ordered By: Sundar Briggs on 01-22-2024 Urea nitrogen [Mass/Vol] 14 mg/dL 7-18 [facility] T4 Free Directon 01-22-2024 T4 FREE DIRECT 1.61 ng/dL High 0.76-1.46 [facility] Comment on above: Performed By: #### L 500.4050, L501.9520, L506.0400, L500.4100, L100.0100 #### [facility] [address] [place], [address] Thin prep Papanicolaou smear with manual screeningOrdered By: Sundar Briggs on 01-22-2024 Thin prep Papanicolaou smear with manual screening 4.1 g/dL 3.2-5.0 [facility] Thin prep Papanicolaou smear with manual screening 14 U/L 15-37 [facility] Thin prep Papanicolaou smear with manual screening 4 5-15 [facility] Thin prep Papanicolaou smear with manual screening 1.61 ng/dL 0.76-1.46 [facility] Thyroid Stim Hormone (TSH)on 01-22-2024 TSH 0.10 uIU/mL Low 0.358-3.74 [facility] Comment on above: Performed By: #### L 500.4050, L501.9520, L506.0400, L500.4100, L100.0100 #### [facility] [address] [place], [address] SCRN MAMM (CAD)W/DEBORAH BILATo n 07-15-2023 SCRN MAMM (CAD)W/DEBORAH BILAT [facility] Services [address] [place] [address] SCRN MAMM (CAD)W/DEBORAH BILAT MR#: [id number] Acct: [id number] Name: LUANN RIBEIRO I Rep #: [id number] : 1965 F 57 From: Geraldo Stock MD PCP: Dr. Cynthia Carreno MD Status: REG CLI Study: SCRN MAMM (CAD)W/DEBORAH BILAT Date of Exam: 06/30 03/22 Exam# [id number] Ordering Dr: Sundar Briggs MD [id number] MAMMOGRAPHY - BILATERAL SCREENING 3-D TOMOSYNTHESIS REASON FOR EXAM: Female, 57 years old. screening PERTINENT HISTORY: No significant family history. TECHNIQUE: 2-D mammograms and 3-D Tomosynthesis of the breast (s) were performed. CAD was performed. COMPARISON: 03/19/2014 FINDINGS: The breast composition is composed of scattered fibroglandular density. Scattered benign calcifications are seen. No dense spiculated masses or suspicious microcalcifications are identified. No architectural distortion is identified. There is no skin thickening or retraction. There has been no significant change since the prior study. BI/SCRN MAMM (CAD)W/DEBORAH BILAT IMPRESSION: No mammographic signs of malignancy. Routine yearly mammograms recommended. ASSESSMENT CATEGORY: BIRADS Category 1: Negative. A letter regarding these results will be sent to the patient by the facility within 30 days. FOLLOW UP RECOMMENDATION: Yearly follow up mammogram recommended. (A) Approximately 10% of breast cancers are not detected by mammography. A normal mammogram should not delay biopsy of a clinically suspicious abnormality. Electronically Signed: Geraldo Stock MD at 11:23 EDT , CC: Dr. Cynthia Carreno MD; Dr. Sundar Briggs MD Dormitory Counselor: Signed Normal [facility] Endocrinology Visit Reporton 06-10-2023 Endocrinology Visit Report [facility] [address] [place] [address] [address] [place] [address] OFFICE VISIT Date of Service: 06/10/23 MR#: [id number] Acct: [id number] Name: LUANN RIBEIRO I Rep #: [id number] : 1965 Provider: Alona Briggs Age/Sex: 57/F [place] [facility] [place]: Signed Intake Vital Signs 06/18/22 16:01 06/10/23 15:58 Height 5 ft 5.5 in 5 ft 5.5 in Weight: 211 lb 8 oz 211 lb BMI 34.6 34.5 BP 141/83 H 142/82 H Blood Pressure Location Lt brachial Lt brachial Position Sitting Sitting Respiration 18 16 Pulse 82 72 Pulse Source Monitor Monitor Temp 97.3 F L 98.3 F Temp Source Temporal Temporal Pulse Oximetry (%) 94 98 Oxygen Delivery Method room air room air Intake Visit Reasons: 1 Y FU Chief Complaint: Hypothyroidism Employee'S Representative Required: No Accompanied by: Self Is patient in pain?: No Allergies codeine Allergy (Unknown, Verified 06/10/23 16:04) Unknown dextrose Allergy (Unknown, Verified 06/10/23 16:04) Unknown iron Allergy (Unknown, Verified 06/10/23 16:04) Unknown Nurse's Note: Room 3 [facility] Medical History Thyroid dysfunction Surgical History H/O: H/O: hysterectomy Family History Unknown Diabetes Hypertension Social History Smoking Status: Never smoker HPI HPI Chief Complaint: Hypothyroidism Details: LUANN RIBEIRO, is a 57 F who presents to the office today for follow up. She is feeling well, no complaints. She is taking levothyroxine. Labs are due next November. She doesn't have PCP. She needs mammogram. She doesn't want DEXA at this time. Exam Const General: cooperative, healthy appearing, comfortable, no acute distress, well developed and not cushingoid Nutritional Appearance: well nourished Orientation: alert, awake and oriented x3 HENMT Head: normal to inspection Ears: hearing grossly normal bilaterally Nose: external nose normal Mouth: oral mucosae normal Eyes General: appearance normal, both eyes and all related structures Alignment and Position: alignment normal Periorbital: periorbital findings normal Eyelids: eyelids normal Conjunctivae: conjunctivae normal Neck Neck: normal visual inspection Neck mass: No Thyroid: thyroid normal Carotids: no bruits Lymphatic: no lymphadenopathy noted Chest Chest palpation inspection: normal inspection of the chest Resp Effort Inspection: normal respiratory effort, able to speak in complete sentences, symmetric chest movement, no audible wheezes and no cough Auscultation: Bilateral: Clear to Auscultation Cardio Rate: regular rate Rhythm: regular rhythm GI Inspection: normal to inspection Skin General: no rashes or lesions noted Neuro General: patient alert, patient awake and patient oriented x3 Cranial Nerves: CN's II-XI intact bilaterally Cognition: normal cognition Speech: speech normal Gait: normal gait Motor: muscle tone normal throughout Extrem General: no edema Psych Appearance: grossly normal Mental Status: mental status grossly normal Mood: congruent mood Affect: normal affect Speech and Movement: speech and movement normal Attitude: cooperative Thought Process: normal Thought Content: normal Judgment: judgment good Coding Level of Care Code Off vis,est,level 4 Diagnoses Postablative hypothyroidism E89.0 Hypothyroidism type: postablative Assessment and Plan Assessment and Plan (1) Hypothyroid: Status: Chronic Qualifiers: Hypothyroidism type: postablative Qualified Code(s): E89.0 - Postprocedural hypothyroidism Plan: Take levothyroxine on an empty stomach with water at least four hours after eating. Then wait 30-60 minutes before consuming any other food or beverage, especially coffee. Separate levothyroxine from vitamins by at least 4 hours. Stop taking any biotin supplement 4 days prior to having labs drawn. Check labs if symptoms or before November,. Mammogram ordered. I have spent [30] minutes today reviewing labs, records and history. Time includes coordinating care, interpretation of tests, discussion with patient's other health care providers via telephone. This also includes time I spent with the patient for exam, treatment plan and education as well as documenting clinical information. Orders: Orders T4 Free Direct Today E03.9 - Hypothyroidism, unspecified Thyroid Stim Hormone (TSH) Today E03.9 - Hypothyroidism, unspecified SCRN MAMM (CAD)W/DEBORAH BILAT Today Z12.31 - Encounter for screening mammogram for malignant neoplasm of breast Comprehensive Metabolic Profil Today E03 (more content not included)... Normal [facility] CNOVon 02-08-2018 CNOV Office Visit ([facility]) -LUANN RIBEIRO I ([id number]) 1965 FDate Time Provider Department02/08/18 1:30 PM RAFAELA HARRISON (CHITO) [facility] During your visit today, we recorded the following information about you: Temperature Pulse Respiration Blood pressure 97.8 degrees 80/minute 16/minute 126/84 Weight 93.4 kgRafaela Harrison (Chito) 02/08/2018 2:02 PM SignedSubjectiveHPIBafaustina Perez Kim is a 52 year old female who presents with a small lesionon the right inner thigh that she noticed on 02/07/18. It does not itch. She isunsure how she got it or when. There are no other lesions noted.PAST MEDICAL HISTORYDiagnosis Date- Anemia, unspecified- Excessive or frequent menstruation Heavy periods- Hypothyroidism- Leiomyoma of uterus, unspecifiedPAST SURGICAL HISTORYProcedure Laterality Date- PAST SURGICAL HISTORY OF c section- PAST SURGICAL HISTORY OF bto- VAGINAL HYSTERECTOMY 2006 ovaries remainALLERGIES Codeine; Iron DextranMEDICATIONSSYNTHROID 175 mcg tablet Take 1 tablet by mouth once daily. Take on emptystomach. For Thyroid.Cholecalciferol, Vitamin D3, 2,000 unit cap Take 1 tablet by mouth once daily.To start after 12 weeks of Vit D 50,000 IU PO weekly.methylPREDNISolone (MEDROL, RHONDA,) 4 mg Dose-Pack Take as directedFAMILY HISTORYProblem Relation Age of Onset- Hypertension Father- Hypertension Mother- Diabetes Sister- Hypertension Brother- Thyroid SisterSocial HistorySubstance Use Topics- Smoking status: Never Smoker- Smokeless tobacco: Never Used- Alcohol use NoReview of SystemsSkin: Positive for rash. Negative for itching.All other systems reviewed and are negative.ObjectivePhysical ExamConstitutional: She is oriented to person, place, and time and well-developed,well-nourished , and in no distress.Neurological: She is alert and oriented to person, place, and time.Skin: Skin is warm and dry.1 cm oval lesion with a dark border and slight scaly centerPsychiatric: Affect normal.ASSESSMENT/PLAN:1. Skin eruption - ICD9: 782.1, ICD10: S56Etkffev to try OTC Cortisone cream 2-3 x/day. Return if she notices spreading.CHITO Melara-CReferring Provider: SELF [200]Allergies As of Date: 02/08/2018 Noted Allergy ReactionCODEINE 02/03/2007 12 - Shortness of BreathIRON DEXTRAN 03/07/2007 4 - Hives 9 - Itching Comments: This occurred with test dose.Date Reviewed: 02/08/2018Reviewed by: Sugey Wyman LPN - Fully AssessedReason for Visit: Rash [1087] Cmt: On upper inner right thighPrimary Visit Diagnosis:Skin eruption [R21]Prescriptions as of 02/08/2018 Sig: SYNTHROID 175 MCG TABLET Take 1 tablet by mouth once d* CHOLECALCIFEROL (VITAMIN D3) * Take 1 tablet by mouth once d* METHYLPREDNISOLONE 4 MG TABLE* Take as directedProblem List As Of Date 02/08/2018 Noted Resolved ANEMIA NOS [D64.9] INVALID FOR* COAGULAT DEFECT NEC/NOS [D68.9] INVALID FOR* IRON DEFIC ANEMIA NOS [D50.9] INVALID FOR* UTERINE LEIOMYOMA NOS [D25.9] INVALID FOR* EXCESSIVE MENSTRUATION [N92.0] INVALID FOR* Hypothyroidism [E03.9] INVALID FOR* More... Status:Closed by RAFAELA HARRISON PA-C on 02/08/18 Normal [facility] PROGRESSon 02-08-2018 PROGRESS HNO ID: [id number] thor: Rafaela Harrison (Chito)Service: (none)Author Type: Physician AssistantType: Progress NotesFiled: 02/08/2018 2:02 PMNote Text:SubjectiveHPIBafaustina Ribeiro is a 52 year old female who presents with a smalllesion on the right inner thigh that she noticed on 02/07/18. It does notitch. She is unsure how she got it or when. There are no other lesionsnoted.PAST MEDICAL HISTORYDiagnosis Date- Anemia, unspecified- Excessive or frequent menstruation Heavy periods- Hypothyroidism- Leiomyoma of uterus, unspecifiedPAST SURGICAL HISTORYProcedure Laterality Date- PAST SURGICAL HISTORY OF c section- PAST SURGICAL HISTORY OF bto- VAGINAL HYSTERECTOMY 2006 ovaries remainALLERGIES Codeine; Iron DextranMEDICATIONSSYNTHROID 175 mcg tablet Take 1 tablet by mouth once daily. Take on emptystomach. For Thyroid.Cholecalciferol, Vitamin D3, 2,000 unit cap Take 1 tablet by mouth oncedaily. To start after 12 weeks of Vit D 50,000 IU PO weekly.methylPREDNISolone (MEDROL, RHONDA,) 4 mg Dose-Pack Take as directedFAMILY HISTORYProblem Relation Age of Onset- Hypertension Father- Hypertension Mother- Diabetes Sister- Hypertension Brother- Thyroid SisterSocial HistorySubstance Use Topics- Smoking status: Never Smoker- Smokeless tobacco: Never Used- Alcohol use NoReview of SystemsSkin: Positive for rash. Negative for itching.All other systems reviewed and are negative.ObjectivePhysical ExamConstitutional: She is oriented to person, place, and time andwell-developed, well-nourished, and in no distress.Neurological: She is alert and oriented to person, place, and time.Skin: Skin is warm and dry.1 cm oval lesion with a dark border and slight scaly centerPsychiatric: Affect normal.ASSESSMENT/PLAN:1. Skin eruption - ICD9: 782.1, ICD10: F79Wtszsuw to try OTC Cortisone cream 2-3 x/day. Return if she noticesspreading.Rafaela Harrison PA-C Normal [facility] CNOVon 06-11-2017 CNOV Office Visit ([facility]) -LUANN RIBEIRO I ([id number]) 1965 FDate Time Provider Department06/11/17 4:45 PM EMILEE SHERMAN (DEVELOPMENT ANALYST) [facility] During your visit today, we recorded the following information about you: Temperature Pulse Respiration Blood pressure 98.2 degrees 78/minute 16/minute 138/90 Weight 91.2 kgEmilee Sherman CNP 06/27/2017 8:34 AM AddendumPatient is a 51 year old female presenting with sore throat. The history isprovided by the patient. No language path was used.Sore ThroatPertinent negatives include no congestion, coughing, ear pain, headaches orshortness of breath.HPI Luann Ribeiro is a 51 year old female who presents today for CC ofsore throat This started 48 hours ago. She is also having fatigue. Symptomsare worsened by swallowing. She has tried tylenol with slight relief. Riskfactors grandchildren PMH h/o staph infection in throat 5 years ago in throat,not strepBP 138/90 Pulse 78 Temp 36.8 ?C (98.2 ?F) (Tympanic) Resp 16 Wt 91.2 kg(201 lb) LMP 05/12/2007 BMI 33.19 kg/[id number] Reactions- Codeine Shortness of Breath- Iron Dextran Hives, Itching This occurred with test dose.ACTIVE PROBLEM LISTAnemia, UnspecifiedOther and Unspecified Coagulation DefectsIron Deficiency Anemia, UnspecifiedLeiomyoma of Uterus, UnspecifiedExcessive Or Frequent MenstruationHypothyroidismFam ge HistoryProblem Relation Age of Onset- Hypertension Father- Hypertension Mother- Diabetes Sister- Hypertension Brother- Thyroid SisterSocial History Marital status: Spouse name: Years of education: Number of children: 4Occupational HistoryOccupation Employer Comment [employer]*Social History Main Topics Smoking status: Never Smoker Alcohol use: No Drug use: No Sexual activity: NoReview of SystemsConstitutional: Positive for malaise/fatigue. Negative for chills and fever.HENT: Positive for sore throat. Negative for congestion and ear pain.Respiratory: Negative for cough, sputum production, shortness of breath andwheezing.Cardiovascular: Negative for chest pain.Musculoskeletal: Negative for myalgias.Skin: Negative for rash.Neurological: Negative for headaches.Physical ExamConstitutional: She is oriented to person, place, and time and well-developed,well-nourished , and in no distress.HENT:Head: Normocephalic and atraumatic.Right Ear: Tympanic membrane, external ear and ear canal normal. Tympanicmembrane is not injected, not erythematous, not retracted and not bulging. Nomiddle ear effusion.Left Ear: Tympanic membrane, external ear and ear canal normal. Tympanicmembrane is not injected, not erythematous, not retracted and not bulging. Nomiddle ear effusion.Nose: Nose normal. Right sinus exhibits no maxillary sinus tenderness and nofrontal sinus tenderness. Left sinus exhibits no maxillary sinus tenderness andno frontal sinus tenderness.Mouth/Throat: Uvula is midline and mucous membranes are normal. Oropharyngealexudate (white), posterior oropharyngeal edema and posterior oropharyngealerythema present. No tonsillar abscesses.Eyes: Conjunctivae and EOM are normal. Pupils are equal, round, and reactive tolight.Neck: Normal range of motion. Neck supple.Pulmonary/Chest: Effort normal.Lymphadenopathy: Head (right side): No submental, no submandibular, no tonsillar, nopreauricular and no posterior auricular adenopathy present. Head (left side): No submental, no submandibular, no tonsillar, nopreauricular and no posterior auricular adenopathy present. She has no cervical adenopathy. Right: No supraclavicular adenopathy present. Left: No supraclavicular adenopathy present.Neurological: She is alert and oriented to person, place, and time.Skin: Skin is warm and dry.Psychiatric: Affect normal.Nursing note and vitals reviewed.ASSESSMENT/PLAN:1. Sore throat - ICD9: 462, ICD10: J02.9- suspect viral- Rapid Strep negative in the office today- overnight throat culture pending- Discussed supportive care treatment with fluids, rest and analgesia.- The patient may also use warm salt water gargles, throat lozenges and/or OTCthroat spray as needed.- Contagious dz precautions discussed- including considered contagious untilon antibiotics for 24 hours- The patient should follow up in one week if symptoms persist or worsen- Call back if drooling, increased temperature, symptoms of dehydration and/orstill sick in one week- GROUP A STREPTOCOCCUS BY PCR- RAPID STREP TEST B/O- WOUND CULTURE AND GRAM STAINWound culture done of throat due to h/o of staph please notify patient ofresultsDiagnosis and treatment plan were discussed and questions were answeredto the patient's satisfaction. Pt acknowledged understanding of concepts andfollow up plan.Specific signs and symptoms that would indicate the need for higher level ofcare were discussed in detail warranting prompt ER evaluation.Magdalena Singer CNP 06/11/2017 5:10 PM SignedASSESSMENT/PLAN:1. Sore throat - ICD9: 462, ICD10: J02.9- suspect viral- Rapid Strep negative in the office today- overnight throat culture pending- Discussed supportive care treatment with fluids, rest and analgesia.- The patient may also use warm salt water gargles, throat lozenges and/or OTCthroat spray as needed.- Contagious dz precautions discussed- including considered contagious untilon antibiotics for 24 hours- The patient should follow up in one week if symptoms persist or worsen- Call back if drooling, increased temperature, symptoms of dehydration and/orstill sick in one week- GROUP A STREPTOCOCCUS BY PCR- RAPID STREP TEST B/O- WOUND CULTURE AND GRAM STAINWound culture done of throat due to h/o of staph please notify patient ofresultsReferring Provider: SELF [200]Allergies As of Date: 06/11/2017 Noted Allergy ReactionCODEINE 02/03/2007 12 - Shortness of BreathIRON DEXTRAN 03/07/2007 4 - Hives 9 - Itching Comments: This occurred with test dose.Date Reviewed: 06/11/2017Reviewed by: Emilee Sherman - Fully AssessedReason for Visit: Sore Throat [200] Cmt: x couple daysPrimary Visit Diagnosis:Sore throat [J02.9]Order(s):GROUP A STREPTOCOCCUS BY PCR [SQGASPCR] Order #: [id number]. #:[id number] RAPID STREP TEST B/O [[id number]] Order #: [id number] THROAT CULTURE [SQTHRCUL] Order #: [id number]. #:[id number] criptions as of 06/11/2017 Sig: SYNTHROID 175 MCG TABLET Take 1 tablet by mouth once d* CHOLECALCIFEROL (VITAMIN D3) * Take 1 tablet by mouth once d* METHYLPREDNISOLONE 4 MG TABLE* Take as directedMedication notes this encounter METHYLPREDNISOLONE 4 MG TABLETS IN A DOSE PACK >> Gail Stallings Ma 06/11/2017 4:46 PM >> KALPESH GAIL CARO Jun 11, 2017 4:46 PM doneProblem List As Of Date 06/11/2017 Noted Resolved ANEMIA NOS [D64.9] INVALID FOR* COAGULAT DEFECT NEC/NOS [D68.9] INVALID FOR* IRON DEFIC ANEMIA NOS [D50.9] INVALID FOR* UTERINE LEIOMYOMA NOS [D25.9] INVALID FOR* EXCESSIVE MENSTRUATION [N92.0] INVALID FOR* Hypothyroidism [E03.9] INVALID FOR* More... Other instructions from your clinician: ASSESSMENT/PLAN: 1. Sore throat - ICD9: 462, ICD10: J02.9 - suspect viral - Rapid Strep negative in the office today - overnight throat culture pending - Discussed supportive care treatment with fluids, rest and analgesia. - The patient may also use warm salt water gargles, throat lozenges and/or OTC throat spray as needed. - Contagious dz precautions discussed- including considered contagious until on antibiotics for 24 hours - The patient should follow up in one week if symptoms persist or worsen - Call back if drooling, increased temperature, symptoms of dehydration and/or still sick in one week - GROUP A STREPTOCOCCUS BY PCR - RAPID STREP TEST B/O - WOUND CULTURE AND GRAM STAIN Wound culture done of throat due to h/o of staph please notify patient of resultsEncounter Number: [id number] Status:Closed by EMILEE SHERMAN DEVELOPMENT ANALYST on 06/11/17 Normal [facility] Group A Strep by PCRon 06-11 GAS Specimen Source Throat Swab Normal [facility] Comment on above: Performed By: #### G ASPCR ####[facility], [place] [phone] Group A Strep PCR Negative Normal [facility] Comment on above: Result Comment: This test was developed and its performance characteristics determined by [facility]'s [facility] [place] (RTPLVT).It has not been cleared or approved by the FDA. -[facility] is regulated under CLIA as qualified to perform high-complexity testing. This test is used for clinical purposes. It should not be regarded as investigational or for research. Performed By: #### G ASPCR ####[facility] [address], [place] [phone] PROGRESSon 06-11-2017 PROGRESS HNO ID: [id number] thor: Emilee ([facility]) FulkService: (none)Author Type: Nurse PractitionerType: Progress NotesFiled: 06/27/2017 8:34 AMNote Text:Patient is a 51 year old female presenting with sore throat. The historyis provided by the patient. No language path was used.Sore ThroatPertinent negatives include no congestion, coughing, ear pain, headachesor shortness of breath.HPI Luann Ribeiro is a 51 year old female who presents today forCC of sore throat This started 48 hours ago. She is also havingfatigue. Symptoms are worsened by swallowing. She has tried tylenol withslight relief. Risk factors grandchildren PMH h/o staph infection inthroat 5 years ago in throat, not strepBP 138/90 Pulse 78 Temp 36.8 ?C (98.2 ?F) (Tympanic) Resp 16 Wt91.2 kg (201 lb) LMP 05/12/2007 BMI 33.19 kg/[id number] Reactions- Codeine Shortness of Breath- Iron Dextran Hives, Itching This occurred with test dose.ACTIVE PROBLEM LISTAnemia, UnspecifiedOther and Unspecified Coagulation DefectsIron Deficiency Anemia, UnspecifiedLeiomyoma of Uterus, UnspecifiedExcessive Or Frequent MenstruationHypothyroidismFam ge HistoryProblem Relation Age of Onset- Hypertension Father- Hypertension Mother- Diabetes Sister- Hypertension Brother- Thyroid SisterSocial History Marital status: Spouse name: Years of education: Number of children: 4Occupational HistoryOccupation Employer Comment [employer]*Social History Main Topics Smoking status: Never Smoker Alcohol use: No Drug use: No Sexual activity: NoReview of SystemsConstitutional: Positive for malaise/fatigue. Negative for chills andfever.HENT: Positive for sore throat. Negative for congestion and ear pain.Respiratory: Negative for cough, sputum production, shortness of breathand wheezing.Cardiovascular: Negative for chest pain.Musculoskeletal: Negative for myalgias.Skin: Negative for rash.Neurological: Negative for headaches.Physical ExamConstitutional: She is oriented to person, place, and time andwell-developed, well-nourished, and in no distress.HENT:Head: Normocephalic and atraumatic.Right Ear: Tympanic membrane, external ear and ear canal normal. Tympanicmembrane is not injected, not erythematous, not retracted and not bulging.No middle ear effusion.Left Ear: Tympanic membrane, external ear and ear canal normal. Tympanicmembrane is not injected, not erythematous, not retracted and not bulging. No middle ear effusion.Nose: Nose normal. Right sinus exhibits no maxillary sinus tenderness andno frontal sinus tenderness. Left sinus exhibits no maxillary sinustenderness and no frontal sinus tenderness.Mouth/Throat: Uvula is midline and mucous membranes are normal.Oropharyngeal exudate (white), posterior oropharyngeal edema and posteriororopharyngeal erythema present. No tonsillar abscesses.Eyes: Conjunctivae and EOM are normal. Pupils are equal, round, andreactive to light.Neck: Normal range of motion. Neck supple.Pulmonary/Chest: Effort normal.Lymphadenopathy: Head (right side): No submental, no submandibular, no tonsillar, nopreauricular and no posterior auricular adenopathy present. Head (left side): No submental, no submandibular, no tonsillar, nopreauricular and no posterior auricular adenopathy present. She has no cervical adenopathy. Right: No supraclavicular adenopathy present. Left: No supraclavicular adenopathy present.Neurological: She is alert and oriented to person, place, and time.Skin: Skin is warm and dry.Psychiatric: Affect normal.Nursing note and vitals reviewed.ASSESSMENT/PLAN:1. Sore throat - ICD9: 462, ICD10: J02.9- suspect viral- Rapid Strep negative in the office today- overnight throat culture pending- Discussed supportive care treatment with fluids, rest and analgesia.- The patient may also use warm salt water gargles, throat lozengesand/or OTC throat spray as needed.- Contagious dz precautions discussed- including considered contagiousuntil on antibiotics for 24 hours- The patient should follow up in one week if symptoms persist or worsen- Call back if drooling, increased temperature, symptoms of dehydrationand/or still sick in one week- GROUP A STREPTOCOCCUS BY PCR- RAPID STREP TEST B/O- WOUND CULTURE AND GRAM STAINWound culture done of throat due to h/o of staph please notify patient ofresultsDiagnosis and treatment plan were discussed and questions wereanswered to the patient's satisfaction. Pt acknowledged understanding ofconcepts and follow up plan.Specific signs and symptoms that would indicate the need for higher levelof care were discussed in detail warranting prompt ER evaluation.Emilee Sherman CNP Normal [facility] Throat Cult/Routineon 2016 Throat Cult/Routine Culture Result - No beta hemolytic streptococci isolated. Normal [facility] Comment on above: Performed By: #### T HRCUL ####[facility] [address] [place], [place] [phone] Lab Report: Basic Metabolic Profile (BMP)on 04-29-2017 Anion gap 6 mmol/L Invalid Interpretation Code 02-11 [facility] Work Phone: [phone] Anion gap molar conc 6 mmol/L 02-11 [facility] Work Phone: BUN/Creatinine Ratio 13.9 RATIO Invalid Interpretation Code 10-20 [facility] Work Phone: Calcium 9.4 mg/dL Invalid Interpretation Code 8.5-10.1 [facility] Work Phone: Chloride 106 mmol/L Invalid Interpretation Code 98-107 [facility] Work Phone: [phone] CO2 29.0 mmol/L Invalid Interpretation Code 21.0-32.0 [facility] Work Phone: [phone] CO2 ppres (BldV) 29.0 mmol/L 21.0-32.0 [facility] Work Phone: [phone] Creatinine 0.94 mg/dL Invalid Interpretation Code 0.55-1.02 [facility] Work Phone: [phone] eGFR (non-black) 81 mL/min/{1.73_m2} Invalid Interpretation Code >60 [facility] Work Phone: [phone] eGFR (non-black) 67 mL/min/{1.73_m2} Invalid Interpretation Code >60 [facility] Work Phone: [phone] EST GFR - AA 81 mL/min >60 [facility] Work Phone: [phone] Glucose 99 mg/dL Invalid Interpretation Code 70-110 [facility] Work Phone: [phone] Glucose mass conc 99 mg/dL Invalid Interpretation Code 70-110 [facility] Work Phone: [phone] Potassium 4.3 mmol/L Invalid Interpretation Code 3.5-5.1 [facility] Work Phone: [phone] Sodium 141 mmol/L Invalid Interpretation Code 136-145 [facility] Work Phone: [phone] Urea nitrogen 13 mg/dL Invalid Interpretation Code 7-18 [facility] Work Phone: [phone] Lab Report: CBC W/Diff, Auto matedon 04-29-2017 Absolute Neut 1.9 X10 3/UL Low 2.0-7.[address] [facility] [facility] Work Phone: [phone] Basophils/100 leukocytes 0.3 % Invalid Interpretation Code 0-1 [facility] Work Phone: [phone] Basophils/100 WBC (Bld) 0.3 % 0-1 [facility] Work Phone: [phone] Eosinophils/100 leukocytes 2.3 % Invalid Interpretation Code 0-5 [facility] Work Phone: [phone] Eosinophils/100 WBC (Bld) 2.3 % 0-5 [facility] Work Phone: [phone] Erythrocyte distribution width Ratio (RBC) 40.5 fL 35.1-43.9 [facility] Work Phone: [phone] Erythrocyte distribution width Ratio (RBC) 12.4 % 11.6-14.6 [facility] Work Phone: [phone] Erythrocytes (RBC) 4.63 10*6/uL Invalid Interpretation Code 4.2-5.4 [facility] Work Phone: [phone] Hematocrit (HCT) 41.6 % Invalid Interpretation Code 37-47 [facility] Work Phone: [phone] Hematocrit Volume Fraction (Bld) 41.6 % 37-47 [facility] Work Phone: [phone] Hemoglobin (HGB) 13.0 g/dL Invalid Interpretation Code 12.0-15.0 [facility] Work Phone: [phone] Immature granulocytes #/vol (Bld) 0.300 % 0.0-0.9 [facility] Work Phone: [phone] immature granulocytes, percentage of total cells, blood 0.300 % Invalid Interpretation Code 0.0-0.9 [facility] Work Phone: [phone] Immature granulocytes/100 WBC (Bld) 0.300 % Invalid Interpretation Code 0.0-0.9 [facility] Work Phone: [phone] Lymphocytes 1.57 X10 3/UL Invalid Interpretation Code 0.83-4.51 [facility] Work Phone: [phone] Lymphocytes #/vol (Bld) 1.57 X10 3/UL 0.83-4.51 [facility] Work Phone: [phone] Lymphocytes/100 leukocytes 40.6 % Invalid Interpretation Code 19- [facility] Work Phone: [phone] Lymphocytes/100 WBC (Bld) 40.6 % - [facility] Work Phone: [phone] MCH 28.1 pg Invalid Interpretation Code 27.0-32.0 [facility] Work Phone: [phone] MCH Entitic mass (RBC) 28.1 pg 27.0-32.0 [facility] Work Phone: [phone] MCHC 31.3 G/GL Low 32-36 [facility] Work Phone: [phone] MCHC mass conc (RBC) 31.3 G/GL Low 32-36 [facility] Work Phone: [phone] MCV 89.8 fL Invalid Interpretation Code 81-99 [facility] Work Phone: [phone] MCV Entitic volume (RBC) 89.8 fL 81-99 [facility] Work Phone: [phone] Monocytes/100 leukocytes 6.7 % Invalid Interpretation Code 0-10 [facility] Work Phone: [phone] Monocytes/100 WBC (Bld) 6.7 % 0-10 [facility] Work Phone: [phone] neutrophil count, blood 1.9 X10 3/UL Low 2.0-7.7 [facility] Work Phone: [phone] Neutrophils #/vol (Bld) 1.9 X10 3/UL Low 2.0-7.7 [facility] Work Phone: [phone] Neutrophils/100 leukocytes 49.8 % Invalid Interpretation Code 47-70 [facility] Work Phone: [phone] Neutrophils/100 WBC (Bld) 49.8 % 47-70 [facility] Work Phone: [phone] Platelet mean volume Entitic volume (Bld) 10.7 fL 6.2-12.0 [facility] Work Phone: [phone] Platelets 229 10*3/mm3 Invalid Interpretation Code 150-450 [facility] Work Phone: [phone] Platelets #/vol (Bld) 229 10*3/mm3 150-450 [facility] Work Phone: [phone] PMV by Blue 10.7 fL Invalid Interpretation Code 6.2-12.0 [facility] Work Phone: [phone] RBC #/vol (Bld) 4.63 10*6/uL 4.2-5.4 [facility] Work Phone: [phone] RDW SD 40.5 fL Invalid Interpretation Code 35.1-43.9 [facility] Work Phone: [phone] RDW-CA 12.4 % Invalid Interpretation Code 11.6-14.6 [facility] Work Phone: [phone] red blood cell distribution width, size density 40.5 fL Invalid Interpretation Code 35.1-43.9 [facility] Work Phone: [phone] WBC #/vol (Bld) 3.9 10*3/uL Low 4.4-11.0 [facility] Work Phone: [phone] WBC (Leukocytes) 3.9 10*3/uL Low 4.4-11.0 [facility] Work Phone: [phone] Lab Report: Free T3on 2016 Triiodothyronine (T3) free 2.5 pg/mL Invalid Interpretation Code 2.18-3.98 [facility] Work Phone: [phone] Lab Report: Hemoglobin A1con 04-29-2017 HbA1c 5.2 % Invalid Interpretation Code 4.2-6.3 [facility] Work Phone: [phone] Lab Report: Lipid Profileon 04-29-2017 Cholesterol 248 mg/dL High 200 [facility] Work Phone: [phone] HDL Cholesterol 67 mg/dL Invalid Interpretation Code [facility] Work Phone: [phone] LDL Cholesterol 167 mg/dL High 0-[address] [facility] [place] [facility] Work Phone: [phone] Triglyceride 72 mg/dL Invalid Interpretation Code [facility] Work Phone: [phone] low density lipoproteins 14 mg/dL Invalid Interpretation Code 5-40 [facility] Work Phone: [phone] Lab Report: T4 Free Directon 04-29-2017 Thyroxine (T4) free 1.23 ng/dL Invalid Interpretation Code 0.76-1.46 [facility] Work Phone: [phone] Lab Report: Thyroid Stim Hor arielle (TSH)on 04-29-2017 Thyroid stimulating hormone (TSH) 1.22 u[iU]/mL Invalid Interpretation Code 0.358-3.74 [facility] Work Phone: [phone] Lab Report: Vitamin D,25 Hyd roxyon 04-29-2017 vitamin D 25-hydroxy, serum 24.7 ng/mL Invalid Interpretation Code [facility] Work Phone: [phone] Vitamin D 25-OH 24.7 ng/mL Invalid Interpretation Code [facility] Work Phone: [phone] Office Visit: New Pt. Visito n 04-26-2017 Documentation of current medications (procedure) Done Invalid Interpretation Code [facility] Work Phone: [phone] Fall risk assessment No Invalid Interpretation Code [facility] Work Phone: [phone] Protein mass conc Done [facility] Work Phone: [phone] Tobacco smoking status NHIS Never smoker [facility] Work Phone: [phone] Tobacco use CP Never smoker Invalid Interpretation Code [facility] Work Phone: [phone] Lab Report: TSHon 06-04-2014 Thyroid stimulating hormone (TSH) 3.50 u[iU]/mL Normal 0.358-3.74 [facility] Work Phone: [phone] Office Visiton 12-25-2013 Albumin Ql (U) Negative [facility] Work Phone: [phone] Bilirubin Ql (U) Negative Invalid Interpretation Code [facility] Work Phone: [phone] blood in urine (hemoglobin) by dipstick Negative Invalid Interpretation Code [facility] Work Phone: [phone] Glucose Test strip mass conc (U) Negative [facility] Work Phone: [phone] Ketones mass conc (U) Negative [facility] Work Phone: [phone] Nitrite Ql (U) Negative [facility] Work Phone: [phone] pH (U) 5.0 [pH] [facility] Work Phone: [phone] specific gravity, urine 1030 Invalid Interpretation Code [facility] Work Phone: [phone] Urine, appearance clear Invalid Interpretation Code [facility] Work Phone: [phone] Urine, bilirubin presence Negative Invalid Interpretation Code [facility] Work Phone: [phone] Urine, color yellow Invalid Interpretation Code [facility] Work Phone: [phone] Urine, glucose presence Negative Invalid Interpretation Code [facility] Work Phone: [phone] Urine, ketones presence Negative Invalid Interpretation Code [facility] Work Phone: [phone] Urine, leukocyte esterase presence Negative Invalid Interpretation Code [facility] Work Phone: [phone] Urine, nitrite presence Negative Invalid Interpretation Code [facility] Work Phone: [phone] Urine, pH 5.0 [pH] Invalid Interpretation Code [facility] Work Phone: [phone] Urine, protein Negative Invalid Interpretation Code [facility] Work Phone: [phone] Urine, urobilinogen presence 0.2 Invalid Interpretation Code [facility] Work Phone: [phone] External Other: Preferred Me thod of Contacton 12-16-2013 methcontact secmsg Invalid Interpretation Code [facility] Work Phone: [phone] Patient's prefered method of contact secmsg Invalid Interpretation Code [facility] Work Phone: [phone] Lab Report: PROELon 01-04-20 13 GE use only - for LinkLogic import when terms are not otherwise specified Comment Normal . [facility] Work Phone: [phone] [id number] Comment Normal . [facility] Work Phone: [phone] Lab Report: CBCDon 3 Erythrocytes (RBC) 4.51 10*6/uL Normal 4.2-5.4 [facility] Work Phone: [phone] Hematocrit (HCT) 39.2 % Normal 37-47 [facility] Work Phone: [phone] Hemoglobin (HGB) 13.2 g/dL Normal 12.0-15.0 [facility] Work Phone: [phone] Platelets 226 10*3/mm3 Normal 150-450 [facility] Work Phone: [phone] WBC (Leukocytes) 4.5 10*3/uL Normal 4.4-11.0 [facility] Work Phone: [phone] Lab Report: PTon 12-31-2012 INR Coag RelTime (PPP) 1.0 {INR} Normal [facility] Work Phone: [phone] INR in blood by coagulation 1.0 {INR} Normal [facility] Work Phone: [phone] prothrombin time, actual/normal, ratio 13.0 SECONDS Normal 11.9-14.4 [facility] Work Phone: [phone] PTP 13.0 SECONDS Normal 11.9-14.4 [facility] Work Phone: [phone] Lab Report: PTTon 12-31-2012 aPTT 31.6 s Normal 24.1-36.2 [facility] Work Phone: [phone] Lab Report: SEDon 12-31-2012 Erythrocyte sedimentation rate 21 mm/h High 0-20 [facility] Work Phone: [phone] Replaced Document: CMPon Alanine aminotransferase (ALT) 19 U/L Normal 12-78 [facility] Work Phone: [phone] Albumin 4.4 g/dL Normal 3.4-5.0 [facility] Work Phone: [phone] Alkaline phosphatase (ALP) 63 U/L Normal 50-136 [facility] Work Phone: [phone] enzyme act/vol (Bld) 63 U/L Normal 50-136 [facility] Work Phone: [phone] Aspartate aminotransferase (AST) 13 U/L Low 15-37 [facility] Work Phone: [phone] Bilirubin (total) 0.50 mg/dL Normal 0.00-1.00 [facility] Work Phone: [phone] Calcium 9.1 mg/dL Normal 8.5-10.1 [facility] Work Phone: [phone] Chloride 105 mmol/L Normal 98-107 [facility] Work Phone: [phone] Creatinine 0.9 mg/dL Normal 0.6-1.0 [facility] Work Phone: [phone] Glucose 82 mg/dL Normal 70-110 [facility] Work Phone: [phone] Potassium 4.2 mmol/L Normal 3.5-5.1 [facility] Work Phone: [phone] Sodium 136 mmol/L Normal 136-145 [facility] Work Phone: [phone] Urea nitrogen 11 mg/dL Normal 7-18 [facility] Work Phone: [phone] Lab Report: CUTon 07-13-2012 CUT VANCOMYCIN $ <=0.5 S Susceptible Blo [facility] Work Phone: [phone] throat culture VANCOMYCIN $ <=0.5 S Susceptible [facility] Work Phone: [phone] Lab Report: LIPIDon 04-09-20 12 Cholesterol 219 mg/dL High 200 [facility] Work Phone: [phone] HDL Cholesterol 61 mg/dL Normal [facility] [place] [facility] Work Phone: [phone] LDL Cholesterol 143 mg/dL High 0-[facility] Work Phone: [phone] Triglyceride 74 mg/dL Normal [facility] Work Phone: [phone] very low density lipoproteins 15 mg/dL Normal 5-40 [facility] Work Phone: [phone] Office Visiton 09-30-2011 General categories [interpretation] of Cervical or vaginal smear or scraping by Cyto stain Normal Invalid Interpretation Code [facility] Work Phone: [phone] Office Visiton 08-30-2011 Breast Mammogram screening Normal Bilateral Invalid Interpretation Code [facility] Work Phone: [phone] Vital Signs Date Time Vital Sign Value Performing Clinician Facility 06-10-2023 15:58-0400 Body height 166.[address] Cynthia Carreno Work Phone: [facility] 06-10-2023 15:58-0400 Body mass index (BMI) [Ratio] 34.5 kg/m2 Dr. Cynthia Carreno Work Phone: [facility] 06-10-2023 15:58-0400 Body temperature 98.3 [degF] Dr. Cynthia Carreno Work Phone: [facility] 06-10-2023 15:58-0400 Body weight 95.[address] Cynthia Carreno Work Phone: [facility] 06-10-2023 15:58-0400 Diastolic blood pressure 82 mm[Hg] Dr. Cynthia Carreno Work Phone: [facility] 06-10-2023 15:58-0400 Heart rate 72 /min Dr. Cynthia Carreno Work Phone: [facility] 06-10-2023 15:58-0400 Respiratory rate 16 /min Dr. Cynthia Carreno Work Phone: [facility] 06-10-2023 15:58-0400 SaO2% (BldA) [Mass fraction] 98 % Dr. Cynthia Carreno Work Phone: [facility] 06-10-2023 15:58-0400 Systolic blood pressure 142 mm[Hg] Dr. Cynthia Carreno Work Phone: [facility] 04-26-2017 07:58-0400 BMI (Body Mass Index) 32.36 kg/m2 Hillary Terry [facility] Work Phone: 04-26-2017 07:58-0400 Body Temperature 98 [degF] [facility] Work Phone: 04-26-2017 07:58-0400 BP Diastolic 92 mm[Hg] Hillary Terry [facility] Work Phone: 04-26-2017 07:58-0400 BP Systolic 139 mm[Hg] [facility] Work Phone: 04-26-2017 07:58-0400 Height 167.64 cm [facility] Work Phone: 04-26-2017 07:58-0400 Pulse (Heart Rate) 77 /min [facility] Work Phone: 04-26-2017 07:58-0400 Weight 90.95 kg Hillary Terry [facility] Work Phone: 12-25-2013 08:53-0400 BSA (Body Surface Area) 1.97 m2 [facility] Work Phone: 12-25-2013 08:53-0400 Respiratory Rate 18 /min [facility] Work Phone: 10-05-2009 09:08-0500 Height 165.1 cm [facility] Work Phone: 10-05-2009 09:08-0500 Weight 94.26 kg Cynthia Carreno MD [facility] Work Phone: Encounters Encounter Date Encounter Type Care Provider Facility Start: 06-02-2024 End: 06-02-2024 [facility] Start: 01-22-2024 End: 01-22-2024 ambulatory [facility] Work Phone: Start: 01-22-2024 End: 01-22-2024 Patient encounter procedure [facility]Labor[facility] Work Phone: Start: 01-22-2024 End: 01-22-2024 ambulatory [facility] Facility:[facility] Start: 07-15-2023 End: 07-15-[address] Cynthia Carreno Work Phone: [facility] Work Phone: Start: 07-15-2023 End: 07-15-[address] Cynthia Carreno Work Phone: [facility] Work Phone: Start: 07-15-2023 End: 07-15-2023 ambulatory [facility] Facility:[facility] Start: 06-10-2023 End: 06-10-[address] Cynthia Carreno Work Phone: [facility] Work Phone: Start: 06-10-2023 End: 06-10-2023 ambulatory [facility] Facility:[facility] Start: 02-08-2018 End: 02-10-2018 Fabi MONTALVO [facility] Start: 06-11-2017 End: 06-11-2017 Ambulatory MIHIR Ruff (LUIZ) [facility] Procedures Date Procedure Procedure Detail Performing Clinician Start: 07-15-[address] Cynthia dang Work Phone: Start: 04-26-2017 End: 04-29-2017 *BMP Cynthia North Work Phone: Start: 04-26-2017 End: 04-29-2017 *CBC with Differential Cynthia matias MD Work Phone: Start: 04-26-2017 End: 04-29-2017 25-Hydroxyvitamin D2+25-Hydroxyvitamin D3 [Mass/volume] in Serum or Plasma Cynthia Carreno MD Work Phone: Start: 04-26-2017 End: 04-29-2017 Follow Up Appt 3 months Cynthia dang MD Work Phone: Start: 04-26-2017 End: 04-29-2017 Hemoglobin A1c/Hemoglobin.total in Blood Cynthia Carreno MD Work Phone: Start: 04-26-2017 End: 04-29-2017 Lipid 1996 panel - Serum or Plasma Cynthia Carreno MD Work Phone: Start: 04-26-2017 End: 04-29-2017 Mammogram, screening Cynthia Carreno MD Work Phone: Start: 04-26-2017 End: 04-29-2017 Thyrotropin [Units/volume] in Serum or Plasma Cynthia Carreno MD Work Phone: Start: 04-26-2017 End: 04-29-2017 Thyroxine (T4) free [Mass/volume] in Serum or Plasma Cynthia Carreno MD Work Phone: Start: 04-26-2017 End: 04-29-2017 Triiodothyronine (T3) [Mass/volume] in Serum or Plasma Cynthia Carreno MD Work Phone: Start: 04-26-2017 End: 04-29-2017 *BMP Cynthia North Work Phone: Start: 04-26-2017 End: 04-29-2017 *CBC with Differential Cynthia matias MD Work Phone: Start: 04-26-2017 End: 04-29-2017 25-Hydroxyvitamin D2+25-Hydroxyvitamin D3 [Mass/volume] in Serum or Plasma Cynthia Carreno MD Work Phone: Start: 04-26-2017 End: 04-29-2017 Follow Up Appt 3 months Cynthia dang MD Work Phone: Start: 04-26-2017 End: 04-29-2017 HbA1c Cynthia North Work Phone: Start: 04-26-2017 Hyperlipidemia screening Screening for lipid disorders Cynthia Carreno MD Start: 04-26-2017 End: 04-29-2017 Lipid panel [AGGREGATE] Cynthia dang MD Work Phone: Start: 04-26-2017 End: 04-29-2017 Mammogram, screening Cynthia Carreno MD Work Phone: Start: 04-26-2017 Screening for malignant neoplasm of breast Screening for breast cancer Cynthia Carreno MD Start: 04-26-2017 End: 04-29-2017 Thyroid stimulating hormone (TSH) Cynthia Carreno MD Work Phone: Start: 04-26-2017 End: 04-29-2017 Thyroxine (T4) free Cynthia North Work Phone: Start: 04-26-2017 End: 04-29-2017 Triiodothyronine (T3) Cynthia Carreno MD Work Phone: Start: 06-02-2014 End: 06-02-2015 Thyrotropin [Units/volume] in Serum or Plasma Ilir Li MD Start: 06-02-2014 End: 06-02-2015 Thyrotropin [Units/volume] in Serum or Plasma Ilir Li MD Start: 06-02-2014 End: 06-02-2015 Triiodothyronine (T3) Ilir Li MD Start: 06-02-2014 End: 06-02-2015 Triiodothyronine (T3) free Ilir Li MD Start: 12-25-2013 End: 12-25-2013 Urnls dip stick/tablet rgnt non-auto w/o micrscp Ilir Li MD Start: 12-25-2013 End: 12-25-2013 Urinalysis Cynthia Carreno MD Start: 12-25-2013 End: 12-25-2013 Thyroid stimulating hormone (TSH) Ilir Li MD Start: 12-25-2013 End: 12-25-2013 Urnls dip stick/tablet rgnt non-auto w/o micrscp Ilir Li MD Start: 07-13-2012 End: 07-13-2012 Throat culture Cynthia Carreno MD Start: 07-10-2012 End: 07-15-2012 Bacteria identified in Throat by Culture Ilir Li MD Start: 07-10-2012 End: 07-15-2012 Bacteria identified in Throat by Culture Ilir Li MD Start: 06-18-2012 End: 06-23-2012 Bacteria identified in Throat by Culture Ilir Li MD Start: 06-18-2012 End: 06-18-2012 Iaadiadoo streptococcus group a Ilir Li MD Start: 06-18-2012 End: 06-23-2012 Bacteria identified in Throat by Culture Ilir Li MD Start: 06-18-2012 End: 06-23-2012 Rapid strep test Ilir Li MD Start: 06-18-2012 End: 06-18-2012 Strep a assay w/optic Ilir Li MD Start: 04-07-2012 End: 04-09-2012 *CMP Complete Metabolic Panel Ilir Li MD Start: 04-07-2012 End: 04-09-2012 CBC W Auto Differential panel - Blood Ilir Li MD Start: 04-07-2012 End: 04-07-2012 Follow Up Appt 2 months Ilir Li MD Start: 04-07-2012 End: 04-09-2012 Lipid 1996 panel - Serum or Plasma Ilir Li MD Start: 04-07-2012 End: 04-09-2012 *CMP Complete Metabolic Panel Ilir Li MD Start: 04-07-2012 End: 04-09-2012 CBC W Auto Differential panel - Blood Ilir Li MD Start: 04-07-2012 End: 04-07-2012 Follow Up Appt 2 months Ilir Li MD Start: 04-07-2012 General examination of patient HEALTH MAINTENANCE EXAM Cynthia Carreno MD Start: 04-07-2012 End: 04-09-2012 Lipid panel [AGGREGATE] Ilir Li MD Plan of Treatment Date Care Activity Detail Author Start: 04-26-2017 End: 04-29-2017 *BMP *BMP [facility] Work Phone: Start: 04-26-2017 End: 04-29-2017 *CBC with Differential *CBC with Differential [facility] Work Phone: Start: 04-26-2017 End: 04-29-2017 25-Hydroxyvitamin D2+25-Hydroxyvitamin D3 [Mass/volume] in Serum or Plasma *Vitamin D (Calciferol) [facility] Work Phone: Start: 04-26-2017 End: 04-29-2017 Follow Up Appt 3 months Follow Up Appt 3 months [facility] Work Phone: Start: 04-26-2017 End: 04-29-2017 Hemoglobin A1c/Hemoglobin.total mass fraction (Bld) *HgA1C [facility] Work Phone: Start: 04-26-2017 End: 04-29-2017 Lipid panel [AGGREGATE] *Lipid Profile [facility] Work Phone: Start: 04-26-2017 End: 04-29-2017 Mammogram, screening Mammogram, Screening, both breasts [facility] Work Phone: Start: 04-26-2017 End: 04-29-2017 Thyroid stimulating hormone (TSH) *TSH [facility] Work Phone: Start: 04-26-2017 End: 04-29-2017 Thyroxine (T4) free *T4 free [facility] Work Phone: Start: 04-26-2017 End: 04-29-2017 Triiodothyronine (T3) *T3-Total [facility] Work Phone: Start: 04-26-2017 End: 04-26-2017 Appointment Appointment [facility] Work Phone: Start: 04-26-2017 End: 04-29-2017 *BMP *BMP [facility] Work Phone: Start: 04-26-2017 End: 04-29-2017 *CBC with Differential *CBC with Differential [facility] Work Phone: Start: 04-26-2017 End: 04-29-2017 25-Hydroxyvitamin D2+25-Hydroxyvitamin D3 [Mass/volume] in Serum or Plasma *Vitamin D (Calciferol) [facility] Work Phone: Start: 04-26-2017 End: 04-29-2017 Follow Up Appt 3 months Follow Up Appt 3 months [facility] Work Phone: Start: 04-26-2017 End: 04-29-2017 HbA1c *HgA1C [facility] Work Phone: Start: 04-26-2017 End: 04-29-2017 Lipid panel [AGGREGATE] *Lipid Profile [facility] Work Phone: Start: 04-26-2017 End: 04-29-2017 Mammogram, screening Mammogram, Screening, both breasts [facility] Work Phone: Start: 04-26-2017 End: 04-29-2017 Thyroid stimulating hormone (TSH) *TSH [facility] Work Phone: Start: 04-26-2017 End: 04-29-2017 Thyroxine (T4) free *T4 free [facility] Work Phone: Start: 04-26-2017 End: 04-29-2017 Triiodothyronine (T3) *T3-Total [facility] Work Phone: Start: 06-02-2014 End: 06-04-2014 Thyroid stimulating hormone (TSH) *TSH [facility] Work Phone: Start: 06-02-2014 End: 06-04-2014 Thyroid stimulating hormone (TSH) *TSH [facility] Work Phone: Start: 12-25-2013 End: 12-25-2013 Urnls dip stick/tablet rgnt non-auto w/o micrscp UA Dipstick (Office) [facility] Work Phone: Start: 12-25-2013 End: 12-25-2013 Urinalysis nonauto w/o scope UA Dipstick (Office) [facility] Work Phone: Start: 12-31-2012 End: 12-31-2012 *CBC with Differential *CBC with Differential [facility] Work Phone: Start: 12-31-2012 End: 12-31-2012 *CMP Complete Metabolic Panel *CMP Complete Metabolic Panel [facility] Work Phone: Start: 12-31-2012 End: 12-31-2012 *PROEL Protein Electr - Frac / Bob *PROEL Protein Electr - Frac / Bob [facility] Work Phone: Start: 12-31-2012 End: 12-31-2012 aPTT *PTT-Partial Thromboplastin Time [facility] Work Phone: Start: 12-31-2012 End: 12-31-2012 Erythrocyte sedimentation rate *Sedimentation Rate (ESR) [facility] Work Phone: Start: 12-31-2012 End: 12-31-2012 INR Coag RelTime (PPP) *PT/INR [facility] Work Phone: Start: 12-31-2012 End: 12-31-2012 *CBC with Differential *CBC with Differential [facility] Work [facility]: Start: 12-31-2012 End: 12-31-2012 *CMP Complete Metabolic Panel *CMP Complete Metabolic Panel [facility] Work Phone: Start: 12-31-2012 End: 12-31-2012 *PROEL Protein Electr - Frac / Bob *PROEL Protein Electr - Frac / Bob [facility] Work Phone: Start: 12-31-2012 End: 12-31-2012 aPTT *PTT-Partial Thromboplastin Time [facility] Work Phone: Start: 12-31-2012 End: 12-31-2012 aPTT Coag time (PPP) *PTT-Partial Thromboplastin Time [facility] Work Phone: Start: 12-31-2012 End: 12-31-2012 Coagulation factor induced.INR assay in platelet poor plasma *PT/INR [facility] Work Phone: Start: 12-31-2012 End: 12-31-2012 Erythrocyte sedimentation rate *Sedimentation Rate (ESR) [facility] Work Phone: Start: 07-10-2012 End: 07-15-2012 Bacteria identified in Throat by Culture *CUT - Throat Culture [facility] Work Phone: Start: 07-10-2012 End: 07-15-2012 Bacteria identified in Throat by Culture *CUT - Throat Culture [facility] Work Phone: Start: 06-18-2012 End: 06-23-2012 Bacteria identified in Throat by Culture *CUT - Throat Culture [facility] Work Phone: Start: 06-18-2012 End: 06-18-2012 Rapid strep test Rapid Strep (Office) [facility] Work Phone: Start: 06-18-2012 End: 06-23-2012 Bacteria identified in Throat by Culture *CUT - Throat Culture [facility] Work Phone: Start: 06-18-2012 End: 06-18-2012 Rapid strep test Rapid Strep (Office) [facility] Work Phone: Start: 04-07-2012 End: 04-09-2012 *CMP Complete Metabolic Panel *CMP Complete Metabolic Panel [facility] Work Phone: Start: 04-07-2012 End: 04-09-2012 CBC W Auto Differential panel - Blood *CBC without Diff [facility] Work Phone: Start: 04-07-2012 End: 04-07-2012 Follow Up Appt 2 months Follow Up Appt 2 months [facility] Work Phone: Start: 04-07-2012 End: 04-09-2012 Lipid panel [AGGREGATE] *Lipid Profile [facility] Work Phone: Start: 04-07-2012 End: 04-09-2012 *CMP Complete Metabolic Panel *CMP Complete Metabolic Panel [facility] Work Phone: Start: 04-07-2012 End: 04-09-2012 CBC W Auto Differential panel - Blood *CBC without Diff [facility] Work Phone: Start: 04-07-2012 End: 04-07-2012 Follow Up Appt 2 months Follow Up Appt 2 months [facility] Work Phone: Start: 04-07-2012 End: 04-09-2012 Lipid panel [AGGREGATE] *Lipid Profile [facility] Work Phone: CBC W Auto Different ial panel - Blood [facility] Lipid 1996 panel - S amy or Plasma [facility] T4 free measurement [facility] Thyroid stimulating hormone measurement [facility] Payers Date Payer Category Payer Self-pay [id number] 2022 Unknown [id number] Private Health Insurance [id number] Unknown [facility] DO NOT USE 22 [id number] Unknown [id number] Unknown [id number] Unknown [id number] Unknown [id number] Social History Date Type Detail Facility Start: 06-10-2023 Tobacco smoking stat [facility] Unknown if ever smoked [facility] Start: 1965 Sex Assigned At Female [facility] Evaluation note Note Date & Type Note Facility Evaluation note Diagnosis Onset Date Hypothyroid chronic [facility] Work Phone: Evaluation note Note Date & Type Note Facility Evaluation note No assessment information availa ble [facility] Work Phone: Summary Purpose Family History No Family History Records Found Relationship Condition Age at Onset Recorded Date/T cathryn Not Specified Diabetes mellitus Unknown Hypertension Unknown Advance Directives No Advanced Directives Records FoundNo Advanced Directives Records Found Chief Complaint and Reason for Visit Chief Complaint 1 Y FU Encounter for screening mammogram for malignant ne Reason for Visit Hypothyroid Additional Source Comments INFORMATION SOURCE (unrecogn ized section and content) DATE CREATED AUTHOR 03/19/2018 [facility] DATE CREATED AUTHOR AUTHOR'S ORGANIZ ATION 06/03/2024 [facility] Care Teams (unrecognized sec tion and content) Team Status: Active Member Role Status Dates Dr. Cynthia Carreno MD Family Provider Active Dr. Cynthia Carreno MD Primary Care Provider Active Team Status: Inactive Member Role Status Dates Dr. Cynthia Carreno MD Primary Care Provider, Refer ring Provider Active Dr. Sundar Briggs MD Attending Provider Active Team Status: Inactive Member Role Status Dates Dr. Cynthia Carreno MD Primary Care Provider Active Dr. Sundar Briggs MD Attending Provider, Referring Provi tamie Active Goals (unrecognized section and content) Goals may be documented in a n alternate sectionGoals may be documented in an alternate section FOR RECORDS PERTAINING TO PATIENTS WHO ARE OR HAVE BEEN ENROLLED IN A CHEMICAL DEPENDENCY/SUBSTANCEABUSE PROGRAM, SOME INFORMATION MAY BE OMITTED. This clinical summary was aggregated from multiple sources. Caution should be exercised in using it in the provision of clinical care. This summary normalizes information from multiple sources, and as a consequence, information in this document may materially change the coding, format and clinical context of patient data. In addition, data may be omitted in some cases. CLINICAL DECISIONS SHOULD BE BASED ON THE PRIMARY CLINICAL RECORDS. [employer] provides no warranty or guarantee of the accuracy or completeness of information in this document.
[2025-03-03 13:00] LABS: Cholesterol 227 mg/dL (<=200); High Density Lipoprotein 54 mg/dL; Low Density Lipoprotein Calc. 149 mg/dL; Triglycerides 117 mg/dL; Very Low Density Lipoprotein 23 mg/dL (5-40); cholesterol:hdl ratio screen 4.19
== END | disposition home or self-care (01) ==
LOC: BIMLAB 09:25
PROVIDERS: PCP Internal Medicine; Referring Provider Internal Medicine Endocrinology, Diabetes & Metabolism; Visit Provider Internal Medicine Endocrinology, Diabetes & Metabolism
DX: E89.0 Postprocedural hypothyroidism (principal); E78.2 Mixed hyperlipidemia; I10 Essential (primary) hypertension
CPT/HCPCS: 36415; 80061; 84439; 84443

== ENCOUNTER → 2025-09-14 | Outpatient (CLI) | payer OTHER, SELFPAY ==
[2025-09-14 11:40] LABS: Hematocrit 39.3 % (37-47); Hemoglobin 12.6 g/dL (12.0-15.0); Immature Granulocytes Count 0.030 X10^3/uL (0.0-0.0); Mean Corp Hgb Conc 32.1 g/dL (32-36); Mean Corpuscular Volume 88.3 fL (81-99); Mean Platelet Vol. 11.2 fl (6.2-12.0); NRBC Flagged by Analyzer 0 % (0-5); Platelet Count 250 K/mm3 (150-450); RBC Distribution Width CV 12.0 % (11.6-14.6); RBC Distribution Width SD 38.7 fl (35.1-43.9); Red Blood Count 4.45 M/mm3 (4.2-5.4); White Blood Count 3.8 K/mm3 (4.4-11.0)
[2025-09-14 12:13] LABS: AST(SGOT) 20 U/L (<=31); Alanine Aminotransfer ALT/SGPT 14 U/L (<=34); Albumin, Serum 4.5 g/dL (3.4-4.8); Alkaline Phosphatase 80 U/L (35-104); Anion Gap 12 (5-15); BUN 9 mg/dL (4-19); BUN/Creat Ratio 9.9 RATIO (10-20); Calcium,Total 9.5 mg/dL (7.6-11.0); Carbon Dioxide 24.3 mmol/L (21.0-32.0); Chloride 104 mmol/L (98-108); Cholesterol 255 mg/dL (<=200); Globulin 3.4 g/dL (2.2-4.2); Glucose 94 mg/dL (70-99); Low Density Lipoprotein Calc. 174 mg/dL; Potassium 4.1 mmol/L (3.3-5.1); Triglycerides 136 mg/dL; Very Low Density Lipoprotein 27 mg/dL (5-40); cholesterol:hdl ratio screen 4.50
== END | disposition home or self-care (01) ==
LOC: LAB 10:44
PROVIDERS: Referring Provider Internal Medicine Endocrinology, Diabetes & Metabolism; Visit Provider Internal Medicine Endocrinology, Diabetes & Metabolism
DX: E89.0 Postprocedural hypothyroidism (principal); E78.2 Mixed hyperlipidemia; I10 Essential (primary) hypertension
CPT/HCPCS: 36415; 80053; 80061; 84439; 84443; 85025